=== PATIENT | female | born 1960 | race Hispanic/Latino ===

== ENCOUNTER 2018-03-25 19:54 | Emergency (ER) | payer MEDICARE, OTHER ==
[~2018-03-25] VITALS: Ht 157.5 cm; Wt 68.0 kg
[~2018-03-25 19:54] MED LIST: ATENOLOL50 MG PO; FUROSEMIDE40 MG PO; PRILOSEC OTC20 MG PO; XANAX0.5 MG PO
--- OUTSIDE RECORDS SUMMARY | 2018-03-25 19:56 | XMS REPORT ---
Author Author [facility] Address Unknown Phone Unavailable Care Team Providers Care Online Services Manager Name Role Phone SILVANA HUDSON Unavailable Unavailable ROHAN GONZALEZ Unavailable Unavailable Problems This patient has no known problems. Allergies, Adverse Reactions, Alerts This patient has no known allergies or adverse reactions. Medications This patient has no known medications. Results Test Description Test Time Test Comments Text Results Atomic Results Result Comments CT ABDOMEN/PELVIS WO [place] [address] Patient Name: FEDE NEVES MR #: [id number] : 1960 Age/Sex: 56/F Req #: [id number] Adm Physician: Ordered by: SILVANA HUDSON MD Report #: [id number] Location: ER Room/Bed: Procedure: [id number] CT/CT ABDOMEN/PELVIS WO Exam Date: 09/24/17 Exam Time: 5 REPORT STATUS: Signed EXAM: CT ABDOMEN AND PELVIS without IV CONTRAST DATE: 09/24/2017 11:07 PM Time stamp on Exam: 2328 hours INDICATION: Left flank pain COMPARISON: CT of the abdomen and pelvis with IV contrast May 30, 2014 TECHNIQUE: The abdomen and pelvis were scanned using a multidetector helical scanner. Coronal and sagittal reformations were obtained. Renal stone protocol performed. IV Contrast: None Oral Contrast: None CTDIvol has been reviewed. It is below the limits set by the Radiation Protocol Committee (RPC). FINDINGS: LOWER THORAX: No consolidations LIVER: Hepatomegaly and cirrhotic liver morphology. BILIARY: Calcified gallstone in a nondistended gallbladder. No ductal dilation. SPLEEN: Marked splenomegaly with the spleen measuring 18 cm in AP diameter. PANCREAS: No masses ADRENALS: No nodules RIGHT KIDNEY: No nephroureterolithiasis or hydronephrosis. LEFT KIDNEY: No nephroureterolithiasis or hydronephrosis. GI TRACT: No distention, wall thickening or evidence of obstruction. Small sliding-type hiatal hernia. Normal appendix. VESSELS: Mild atherosclerotic changes. PERITONEUM/ RETROPERITONEUM: No free air or fluid LYMPH NODES: No lymphadenopathy REPRODUCTIVE ORGANS: Unremarkable BLADDER: Unremarkable SOFT TISSUES: Small fat-containing left inguinal hernia. BONES: No suspicious bone lesions. IMPRESSION: No nephroureterolithiasis or hydronephrosis. Cirrhosis with splenomegaly. Cholelithiasis without evidence of cholecystitis. Signed by: Dr. Le Childress M.D. on 09/25/2017 12:01 AM Dictated By : LE CHILDRESS MD 17 Transcribed By: LUISA on 09/25/172017 COPY TO: SILVANA HUDSON MD GALLBLADDER [place] [address] Patient Name: FEDE NEVES MR #: [id number] : 1960 Age/Sex: 56/F Req #: [id number] Adm Physician: Ordered by: ROHAN GONZALEZ MD Report #: [id number] Location: US Room/Bed: Procedure: [id number] US/US GALLBLADDER Exam Date: Exam Time: REPORT STATUS: Signed PROCEDURE: US GALLBLADDER COMPARISON: Gallbladder ultrasound 05/30/2014. INDICATIONS: Dyspepsia TECHNIQUE: Chase- scale and color doppler transverse and longitudinal images of the right upper quadrant of the abdomen were obtained. FINDINGS: Liver: 18.4 cm in right mid-clavicular line. Coarsened parenchymal echogenicity with nodular external contour. No masses. Main portal vein: 1.6 cm in caliber. Hepatopedal flow. Gallbladder: Echogenic foci protruding from the gallbladder wall into the lumen measuring up to 0.7 cm in caliber, without shadowing. No calculus, sludge, wall thickening, or pericholecystic fluid. Common Bile Duct: 0.5 cm Sonographic Spencer's sign: Reported as negative. Right kidney: 10 cm. Normal renal cortical echogenicity. No solid masses or hydronephrosis. Pancreas: The visualized portions are unremarkable. Inferior vena cava: Patent Aorta: Non-aneurysmal Ascites : None in the right upper quadrant of the abdomen. CONCLUSION: Cirrhosis with enlargement of the main portal vein suggestive of portal hypertension. No focal hepatic mass. Gallbladder polyps measuring up to 0.7 cm. Followup right upper quadrant ultrasound in 6-12 months is suggested to document stability. Dictated by: Tiffany Guevara M.D. on 09/09/2017 at 9: 25 Electronically approved by: Tiffany Guevara M.D. on 09/09/2017 at 9:25 Dictated By: TIFFANY GUEVARA MD 4 Transcribed By: CANDY on 09/09/17924 COPY TO : ROHAN GONZALEZ MD
[2018-03-25] MEDS ORDERED: KETOROLAC TROMETHAMINE 30 MG/ML VIAL IV STA (20:41)
[2018-03-25] MEDS ORDERED: POTASSIUM CHLORIDE 20 MEQ TAB CR PO STA (21:36)
[2018-03-25] MEDS ORDERED: IOPAMIDOL 300MG/ML 100 ML INFUS..BTL IV ONE (22:15)
[2018-03-25 23:16] VITALS: BP 132/84
== END 2018-03-25 23:45 | disposition home or self-care (01) ==
LOC: FSED 19:54
DX: S33.5XXA Sprain of ligaments of lumbar spine, initial encounter (principal); X58.XXXA Exposure to other specified factors, initial encounter; M47.26 Other spondylosis with radiculopathy, lumbar region
CPT/HCPCS: 99284; J1885; Q9967

== ENCOUNTER 2018-06-04 20:15 | Emergency (ER) | payer MEDICARE, OTHER ==
[~2018-06-04] VITALS: Ht 157.5 cm; Wt 66.7 kg
[2018-06-04] MEDS ORDERED: METHYLPREDNISOLONE SOD SUCC 125 MG/2ML VIAL IM ONE (20:45)
[2018-06-04] MEDS ORDERED: KETOROLAC TROMETHAMINE 60 MG/2 ML VIAL IM ONE (20:45)
[2018-06-04] MEDS ORDERED: CLINDAMYCIN HCL 150 MG CAP PO ONE (20:45)
[2018-06-04] MEDS ORDERED: TRIMETHOPRIM/SULFAMETHOXAZOLE 160-800 MG TAB PO ONE (21:00)
[2018-06-04 21:23] VITALS: BP 138/76
[2018-06-04] MEDS ORDERED: MEDROL4 MG PO (21:27)
[2018-06-04] MEDS ORDERED: CLINDAMYCIN HC150 MG PO (21:27)
[2018-06-04] MEDS ORDERED: TYLENOL WITH C1 EACH PO (21:27)
[2018-06-04] MEDS ORDERED: IBUPROFEN400 MG PO (21:29)
== END 2018-06-04 21:31 | disposition home or self-care (01) ==
LOC: FSED 20:15
DX: M25.512 Pain in left shoulder (principal); L03.114 Cellulitis of left upper limb
CPT/HCPCS: 99282; J1885; J2930

== ENCOUNTER 2019-01-21 19:17 | Emergency (ER) | payer MEDICARE, OTHER ==
[~2019-01-21] VITALS: Ht 157.5 cm; Wt 72.8 kg
[~2019-01-21 19:17] MED LIST changes: +CLINDAMYCIN HC150 MG PO; +IBUPROFEN400 MG PO; +MEDROL4 MG PO; +TYLENOL WITH C1 EACH PO
[2019-01-21] MEDS ORDERED: SODIUM CHLORIDE 0.9% 1000ML 1,000 ML IV SCH (20:00)
[2019-01-21] MEDS ORDERED: ACETAMINOPHEN 325 MG TAB PO ONE (20:00)
[2019-01-21] MEDS ORDERED: POTASSIUM CHLORIDE 20 MEQ TAB CR PO STA (21:20)
[2019-01-21 23:12] VITALS: BP 121/80
== END 2019-01-21 21:47 | disposition home or self-care (01) ==
LOC: FSED 19:17
DX: G44.89 Other headache syndrome (principal); E87.6 Hypokalemia; K52.9 Noninfective gastroenteritis and colitis, unspecified; I10 Essential (primary) hypertension; K74.60 Unspecified cirrhosis of liver; F32.9 Major depressive disorder, single episode, unspecified
CPT/HCPCS: 80053; 81003; 85025; 99283; J7030

== ENCOUNTER 2019-01-31 20:02 | Emergency (ER) | payer MEDICARE, OTHER ==
[~2019-01-31] VITALS: Ht 157.5 cm; Wt 71.4 kg
--- OUTSIDE RECORDS SUMMARY | 2019-01-31 20:04 | XMS REPORT ---
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 V72.31 Active Jayda Burgos MD Routine gynecological examination Std screening V74.5 Active Jayda Burgos MD Screening examination for venereal disease Medication List Medication Instructions Start Date Stop Date Generic Name NDC Status Provider Patient Instruction No Drug Therapy Prescribed - none known did ask Jayda Burgos MD Vital Signs Date Name Value Unit Range Description blood pressure, diastolic 88 mm[Hg] BP narvaez blood pressure, systolic 153 mm[Hg] BP sys height E&M 62 [in_us] Bdy height pulse rate E&M 59 /min Heart rate respiratory rate E&M 16 /min Resp rate temperature E&M 97.8 [degF] Body temperature weight E&M 149.13 [lb_av] Weight Measured blood pressure, diastolic 83 mm[Hg] BP narvaez blood pressure, systolic 128 mm[Hg] BP sys height E&M 62 [in_us] Bdy height pulse rate E&M 63 /min Heart rate respiratory rate E&M 17 /min Resp rate temperature E&M 98.0 [degF] Body temperature weight E&M 146.25 [lb_av] Weight Measured Diagnostic Results Date Name Value Unit Range Description Lab Report: Ct, Ng, Trich vag by KEIRA - Lab chlamydia DNA probe Negative Negative Lab Report: Ct, Ng, Trich vag by KEIRA - Microbiology Neisseria gonorrhoeae DNA probe Negative Negative Encounters Date Encounter Provider Code Facility 15:22:19 CDT Est Patient Problem Focus - 00391 Jayda Burgos MD CPT-70589 [facility] OB Procedures Code Procedure Name Date Entry Date Standard Description CPT-15656 Urinalysis - Dip only - In House 11:59:58 CDT CPT-83110 New Patient Well Exam (40 - 64 Yrs) - [address] 11:59:58 CDT
[2019-01-31] MEDS ORDERED: ALPRAZOLAM 1 MG TAB PO ONE (20:45)
[2019-01-31] MEDS ORDERED: METOPROLOL TARTRATE 25 MG TAB PO ONE (20:45)
[2019-02-01 03:36] VITALS: BP 144/85
== END 2019-01-31 22:40 | disposition home or self-care (01) ==
LOC: FSED 20:02
DX: I10 Essential (primary) hypertension (principal); F41.1 Generalized anxiety disorder

== ENCOUNTER 2019-02-16 17:44 | Emergency (ER) | payer MEDICARE, OTHER ==
[~2019-02-16] VITALS: Ht 157.5 cm; Wt 71.2 kg
--- OUTSIDE RECORDS SUMMARY | 2019-02-16 17:48 | XMS REPORT | Summary of Care ---
Author Author [facility] Organization [facility] Address Unknown Phone Unavailable Encounter HQ Adam(STEFANI) [id number] Date(s): 02/27/18 - 02/28/18 [facility] [address] [place] [address]- Encounter Diagnosis Chest pain (Discharge Diagnosis) - 02/28/18 Other chest pain (Final) - 03/06/18 Essential (primary) hypertension (Final) - Major depressive disorder, single episode, unspecified (Final) - Discharge Disposition: Home or Self Care Attending Physician: Magdalene Ragland DO Vital Signs 1 2 3 Most recent to oldest [Reference Range]: 170.18 cm (02/27/18 6:21 PM) Height 98.2 DegF (02/28/18 1:08 AM) 98 DegF (02/27/18 6:21 PM) Temperature Oral [96.4-99.1 DegF] 107/71 mmHg (02/28/18 1:08 AM) 103/62 mmHg (02/28/18 12:33 AM) 112/74 mmHg (02/27/18 10:49 PM) Blood Pressure [90-140/60-90 mmHg] 15 BRMIN (02/28/18 1:08 AM) 16 BRMIN (02/28/18 12:33 AM) 15 BRMIN (02/27/18 10:49 PM) Respiratory Rate [14-20 BRMIN] 94 bpm (02/27/18 6:21 PM) Peripheral Pulse Rate [60-100 bpm] 63.636 kg (02/27/18 6:21 PM) Weight 21.97 m2 (02/27/18 6:21 PM) Body Mass Index Problem List Condition Effective Dates Status Health Status Informant Abdominal pain, Active acute(Confirmed) Alcoholic cirrhosis Active of liver(Confirmed) Ankle 10/02/10 Resolved fracture(Confirmed)1 Ascites(Confirmed) Active Overweight (BMI Active 25.0-29.9)(Confirmed ) Depression(Confirmed Active ) Escherichia 09/26/17 Active coli(Confirmed)2, 3 Esophageal varices Active without bleeding(Confirmed) Gastritis(Confirmed) Active High blood Active pressure(Confirmed) Breast lump in Active female(Confirmed) 1Approximate date 2Urine (ESBL), 2017 3Problem added by Discern Expert. Allergies, Adverse Reactions, Alerts Substance Reaction Severity Status morphine Active NKDA Active Medications Saline Flush 0.9% 10 mL, Route: IVP, Drug Form: INJ, Dosing Weight 63.636, kg, PRN, PRN Line Flush , Start date: 02/27/18 18:36:00 CDT, Duration: 30 day, Stop date: 03/29/18 18:35 :00 CDT Notes: (Same as: BD Posiflush) Start Date: 02/27/18 Stop Date: 02/28/18 Status: Discontinued Results ELECTROLYTES Most recent to 1 2 oldest [Reference Range]: Sodium Lvl [135-145 135 mEq/L mEq/L] (02/27/18 7:02 PM) Potassium Lvl 3.3 mEq/L [3.5-5.1 mEq/L] *LOW* (02/27/18 7:02 PM) Chloride Lvl [95-109 102 mEq/L mEq/L] (02/27/18 7:02 PM) CO2 [24-32 mEq/L] 26 mEq/L (02/27/18 7:02 PM) AGAP [10.0-20.0 10.3 mEq/L mEq/L] (02/27/18 7:02 PM) CHEM PANEL Most recent to 1 2 oldest [Reference Range]: Creatinine Lvl 0.64 mg/dL [0.50-1.40 mg/dL] (02/27/18 7:02 PM) eGFR 101 mL/min/1.73m2 1 *NA* (02/27/18 7:02 PM) BUN [7-22 mg/dL] 17 mg/dL (02/27/18 7:02 PM) B/C Ratio [6-25] 27 *HI* (02/27/18 7:02 PM) Glucose Lvl [70-99 92 mg/dL mg/dL] (02/27/18 7:02 PM) Total Protein 8.6 g/dL [6.4-8.4 g/dL] *HI* (02/27/18 7:02 PM) Albumin Lvl [3.5-5.0 3.7 g/dL g/dL] (02/27/18 7:02 PM) Globulin [2.7-4.2 4.9 g/dL g/dL] *HI* (02/27/18 7:02 PM) A/G Ratio [0.7-1.6] 0.8 (02/27/18 7:02 PM) Calcium Lvl 8.9 mg/dL [8.5-10.5 mg/dL] (02/27/18 7:02 PM) ALT [0-65 unit/L] 47 unit/L (02/27/18 7:02 PM) AST [0-37 unit/L] 44 unit/L *HI* (02/27/18 7:02 PM) Alk Phos [39-136 291 unit/L unit/L] *HI* (02/27/18 7:02 PM) Bili Total [0.2-1.3 0.8 mg/dL mg/dL] (02/27/18 7:02 PM) 1Result Comment: The eGFR is calculated using the CKD-EPI formula. In most young, healthy individuals the eGFR will be >90 mL/min/1.73m2. The eGFR declines with age. An eGFR of 60-89 may be normal in some populations, particularly the elderly, for whom the CKD-EPI formula has not been extensively validated. Use of the eGFR is not recommended in the following populations: Individuals with unstable creatinine concentrations, including patients and those with serious co-morbid conditions. Patients with extremes in muscle mass or diet. The data above are obtained from the National Kidney Disease Education Program ( NKDEP) which additionally recommends that when the eGFR is used in patients with extremes of body mass index for purposes of drug dosing, the eGFR should be mul tiplied by the estimated BMI. CARDIAC ENZYMES Most recent to 1 2 oldest [Reference Range]: Total CK [12-191 98 unit/L unit/L] (02/27/18 7:02 PM) CK MB [0.5-3.6 1.0 ng/mL ng/mL] (02/27/18 7:02 PM) CK MB Index 1.0 [0.0-2.5] (02/27/18 7: PM) Troponin-I <0.02 ng/mL <0.02 ng/mL [0.00-0.40 ng/mL] (02/27/18 11:32 PM) (02/27/18 7:02 PM) HEMATOLOGY Most recent to 1 2 oldest [Reference Range]: WBC [3.7-10.4 K/CMM] 3.6 K/CMM *LOW* (02/27/18 7: PM) RBC [4.20-5.40 4.85 M/CMM M/CMM] (02/27/18 7: PM) Hgb [12.0-16.0 g/dL] 13.3 g/dL (02/27/18 7: PM) Hct [36.0-48.0 %] 39.7 % (02/27/18 7: PM) MCV [80.0-98.0 fL] 81.8 fL (02/27/18 7:02 PM) MCH [27.0-31.0 pg] 27.5 pg (02/27/18 7: PM) MCHC [32.0-36.0 33.6 g/dL g/dL] (02/27/18 7:02 PM) RDW [11.5-14.5 %] 15.2 % *HI* (02/27/18 7: PM) MPV [7.4-10.4 fL] 8.1 fL (02/27/18 7:02 PM) Platelet [133-450 88 K/CMM K/CMM] *LOW* (02/27/18 7: PM) Segs [45.0-75.0 %] 68.2 % (02/27/18 7:02 PM) Lymphocytes 22.3 % [20.0-40.0 %] (02/27/18 7:02 PM) Monocytes [2.0-12.0 7.9 % %] (02/27/18 7: PM) Eosinophils [0.0-4.0 1.1 % %] (02/27/18 7:02 PM) Basophils [0.0-1.0 0.5 % %] (02/27/18 7:02 PM) Segs-Bands # 2.4 K/CMM [1.5-8.1 K/CMM] (02/27/18 7:02 PM) Lymphocytes # 0.8 K/CMM [1.0-5.5 K/CMM] *LOW* (02/27/18 7:02 PM) Monocytes # [0.0-0.8 0.3 K/CMM K/CMM] (02/27/18 7:02 PM) Immunizations Given and Recorded Vaccine Date Status Refusal Reason hepatitis B adult vaccine1 01/30/16 Recorded hepatitis B adult vaccine 09/27/15 Given hepatitis B pediatric vaccine 06/21/15 Given 1Location History: Alison Allen RN Procedures Procedure Date Related Diagnosis Body Site Status Esophagogastroduodenoscopy 02/22/16 Completed Colonoscopy 06/30/15 Completed Social History Social History Type Response Alcohol Current, Type Beer. Frequency: Several times per day. Last use: This past holiday season, around Jimmy.. Previous treatment: None. Alcohol use interferes with work or home: Yes. Drinks more than intended: Yes. Others hurt by drinking: No. Ready to change: Yes. Household alcohol concerns: No. Smoking Status Never smoker; Concerns about tobacco use in household: No; Exposure to Tobacco Smoke Friends occasionally smoke.; Cigarette Smoking Last 365 Days No; Reg Smoking Cessation Counseling No1 entered on: 05/20/18 1Cessation N/A Assessment and Plan No data available for this section
--- OUTSIDE RECORDS SUMMARY | 2019-02-16 17:48 | XMS REPORT | Continuity of Care Document ---
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 hepatofugal multiphasic flow. Splenic artery: Patent with antegrade pulsatile flow. Splenic vein: Patent with normal flow. Bile ducts: Common bile duct diameter: 0.2 cm. Intrahepatic ducts: Normal. Gallbladder: Well distended. Gallstones: None. Stable small 4 mm gallbladder polyp. Gallbladder sludge: None. Gallbladder wall: 0.2 cm. Pericholecystic fluid: None. Sonographic Spencer sign: Absent. Pancreas: Head and uncinate process: Normal. Body and tail: Not seen. Spleen: Craniocaudal length: 11.8 cm. Mass or focal lesion (size and location): None. Mass/Stone/Cyst (size and location): None. Abdominal aorta and IVC: Visible portions are normal. Ascites: None. Other: None. IMPRESSION: 1. Cirrhotic liver without focal mass. Liver stiffness index correlates with severe fibrosis (Metavir score F4). 2. Dilated main portal vein in keeping with portal hypertension. Otherwise, no Doppler/flow abnormalities. 3. Splenomegaly. 05/05/2018 - - Read by: Gustavo Cummings MD Dictated Date/time: 05/05/18 14:20 Electronically Signed by: Gustavo Cummings MD 05/05/18 14:25 FINAL REPORT [facility] Liver w Liver vessels Doppler US Liver w Liver vessels Doppler US EXAM: US ABDOMEN COMPLETE WITH DOPPLER EXAM: US ELASTOGRAPHY DATE: 05/05/2018 1:00 PM CDT INDICATION: - with elastography ADDITIONAL INFORMATION: None. COMPARISON: Ultrasound 11/14/2017 TECHNIQUE: Multiplanar grayscale, color Doppler and spectral Doppler ultrasound of the abdomen. Elastography: Ten samples from the liver were obtained. FINDINGS: Liver: Craniocaudal length: 17.4 cm. Echogenicity: Coarsened Surface: Nodular Mass (size and location): None. Elastography: The average liver stiffness is 23.76 kPa with a standard deviation of 3.57 kPa. Five samples from the spleen were obtained. Hepatic and portal vasculature: Hepatic artery: Patent with antegrade pulsatile flow. Resistive index: 0.67 Portal veins: Patent with normal hepatopetal monophasic flow. Caliber: 1.5 cm Hepatic veins: Patent with normal hepatofugal multiphasic flow. Splenic artery: Patent with antegrade pulsatile flow. Splenic vein: Patent with normal flow. Bile ducts: Common bile duct diameter: 0.2 cm. Intrahepatic ducts: Normal. Gallbladder: Well distended. Gallstones: None. Stable small 4 mm gallbladder polyp. Gallbladder sludge: None. Gallbladder wall: 0.2 cm. Pericholecystic fluid: None. Sonographic Spencer sign: Absent. Pancreas: Head and uncinate process: Normal. Body and tail: Not seen. Spleen: Craniocaudal length: 11.8 cm. Mass or focal lesion (size and location): None. Mass/Stone/Cyst (size and location): None. Abdominal aorta and IVC: Visible portions are normal. Ascites: None. Other: None. IMPRESSION: 1. Cirrhotic liver without focal mass. Liver stiffness index correlates with severe fibrosis (Metavir score F4). 2. Dilated main portal vein in keeping with portal hypertension. Otherwise, no Doppler/flow abnormalities. 3. Splenomegaly. 05/05/2018 - - Read by: Gustavo Cummings MD Dictated Date/time: 05/05/18 14:20 Electronically Signed by: Gustavo Cummings MD 05/05/18 14:25 FINAL REPORT [facility] CARDIAC ENZYMES Troponin-I null 0.00 - 0.40 02/28/2018 [facility] CARDIAC ENZYMES Total CK 98 unit/L 12 - 191 02/28/2018 [facility] CARDIAC ENZYMES CK MB 1.0 ng/mL 0.5 - 3.6 02/28/2018 [facility] CARDIAC ENZYMES Troponin-I null 0.00 - 0.40 02/28/2018 [facility] CARDIAC ENZYMES CK MB Index 1.0 0.0 - 2.5 02/28/2018 [facility] CHEM PANEL eGFR 101 mL/min/1.73m2 02/28/2018 Result Comment: The eGFR is calculated using the [...] from the National Kidney Disease Education Program (NKDEP) which additionally recommends that when the eGFR is used in patients with extremes of body mass index for purposes of drug dosing, the eGFR should be multiplied by the estimated BMI. [facility] CHEM PANEL A/G Ratio 0.8 0.7 - 1.6 02/28/2018 [facility] CHEM PANEL Globulin 4.9 g/dL 2.7 - 4.2 02/28/2018 [facility] CHEM PANEL Calcium Lvl 8.9 mg/dL 8.5 - 10.5 02/28/2018 [facility] CHEM PANEL CO2 26 meq/L 24 - 32 02/28/2018 [facility] CHEM PANEL Chloride Lvl 102 meq/L 95 - 109 02/28/2018 [facility] CHEM PANEL Albumin Lvl 3.7 g/dL 3.5 - 5.0 02/28/2018 [facility] CHEM PANEL Total Protein 8.6 g/dL 6.4 - 8.4 02/28/2018 [facility] CHEM PANEL AST 44 unit/L 0 - 37 02/28/2018 [facility] CHEM PANEL ALT 47 unit/L 0 - 65 02/28/2018 [facility] CHEM PANEL Alk Phos 291 unit/L 39 - 136 02/28/2018 [facility] CHEM PANEL B/C Ratio 27 6 - 25 02/28/2018 [facility] CHEM PANEL AGAP 10.3 meq/L 10.0 - 20.0 02/28/2018 [facility] CHEM PANEL Bili Total 0.8 mg/dL 0.2 - 1.3 02/28/2018 [facility] CHEM PANEL Sodium Lvl 135 meq/L 135 - 145 02/28/2018 [facility] CHEM PANEL Creatinine Lvl 0.64 mg/dL 0.50 - 1.40 02/28/2018 [facility] CHEM PANEL BUN 17 mg/dL 7 - 22 02/28/2018 [facility] CHEM PANEL Potassium Lvl 3.3 meq/L 3.5 - 5.1 02/28/2018 [facility] CHEM PANEL Glucose Lvl 92 mg/dL 70 - 99 02/28/2018 [facility] HEMATOLOGY RDW 15.2 % 11.5 - 14.5 02/28/2018 [facility] HEMATOLOGY Hct 39.7 % 36.0 - 48.0 02/28/2018 [facility] MCV 81.8 fL 80.0 - 98.0 02/28/2018 [facility] MCH 27.5 pg 27.0 - 31.0 02/28/2018 [facility] MCHC 33.6 g/dL 32.0 - 36.0 02/28/2018 [facility] MPV 8.1 fL 7.4 - 10.4 02/28/2018 [facility] Platelet 88 K/CMM 133 - 450 02/28/2018 [facility] Hgb 13.3 g/dL 12.0 - 16.0 02/28/2018 [facility] WBC 3.6 K/CMM 3.7 - 10.4 02/28/2018 [facility] RBC 4.85 M/CMM 4.20 - 5.40 02/28/2018 [facility] Monocytes # 0.3 K/CMM 0.0 - 0.8 02/28/2018 [facility] HEMATOLOGY Segs-Bands # 2.4 K/CMM 1.5 - 8.1 02/28/2018 [facility] Lymphocytes # 0.8 K/CMM 1.0 - 5.5 02/28/2018 [facility] Eosinophils 1.1 % 0.0 - 4.0 02/28/2018 [facility] Monocytes 7.9 % 2.0 - 12.0 02/28/2018 [facility] HEMATOLOGY Basophils 0.5 % 0.0 - 1.0 02/28/2018 [facility] HEMATOLOGY Segs 68.2 % 45.0 - 75.0 02/28/2018 [facility] HEMATOLOGY Lymphocytes 22.3 % 20.0 - 40.0 02/28/2018 [facility] Chest 1view DX Chest 1view DX Clinical Indication: - CP; chest pain Comparison: 12/06/2014 FINDINGS: The portable AP single view radiograph provided for review. The exam demonstrates limited decreased lung volumes without interstitial or airspace opacities, pleural effusions or pneumothorax. The heart size and pulmonary vasculature are normal. The trachea is midline. There are no clinically significant osseous abnormalities noted. IMPRESSION: No chest radiographic evidence of acute cardiopulmonary disease. 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 COMPARISON: Liver ultrasound with Doppler and elastography, 09/10/2017. MRI abdomen, 2017. TECHNIQUE: Multiplanar grayscale and color Doppler ultrasound of the right upper quadrant. FINDINGS: Liver: Mildly enlarged (19.3 cm in length) liver with heterogeneous echotexture and nodular contour characteristic of cirrhosis. No focal hepatic mass identified. Hepatic and portal vasculature: Hepatic artery: Patent with antegrade pulsatile flow. Resistive index: . Portal veins: Patent with normal hepatopetal monophasic flow. MPV caliber: Dilated at 1.5 cm. Hepatic veins: Patent with normal hepatofugal multiphasic flow. Splenic artery: Patent with antegrade pulsatile flow. Splenic vein: Patent with normal flow. Collateral: None. Inferior vena cava: Visible portions are normal. Main portal vein: Dilated main portal vein (1.5 cm) with hepatopetal flow. Bile ducts: Common bile duct diameter: 4 mm. Intrahepatic ducts: Normal. Gallbladder: Small fixed shadowing gallstone along the gallbladder wall, gallbladder sludge and 4 mm polyp. No wall thickening and negative Spencer's. No follow-up indicated for follow-up of this size. Pancreas: Pancreatic body is unremarkable. Remainder of pancreas obscured by bowel gas. Spleen: Persistent splenomegaly (12.5 cm in length). Other: None. IMPRESSION: 1. Cirrhosis. No focal hepatic mass. 2. Normal Doppler examination of the liver. 3. Findings of portal hypertension including dilated main portal vein and splenomegaly. 4. Small adherent gallstone present along gallbladder wall. 5. Small gallbladder polyp, 4 mm. No follow up indicated for this finding given small size. 11/14/2017 - - Read by: Randi Barriga MD Dictated Date/time: 11/14/17 12:25 Electronically Signed by: Randi Barriga MD 11/14/17 12:43 FINAL REPORT [facility] IMMUNOLOGY [facility] HIV 4th GEN Negative *NA* (09/26/17 1:30 PM) Negative 2017 [facility] ELECTROLYTES AGAP 11.8 meq/L 10.0 - 20.0 2017 [facility] ELECTROLYTES eGFR 86 mL/min/1.73m2 2017 Result Comment: The eGFR is calculated using the [...] from the National Kidney Disease Education Program (NKDEP) which additionally recommends that when the eGFR is used in patients with extremes of body mass index for purposes of drug dosing, the eGFR should be multiplied by the estimated BMI. [facility] ELECTROLYTES BUN 12 mg/dL 7 - 22 2017 [facility] ELECTROLYTES Glucose Lvl 91 mg/dL 70 - 99 2017 [facility] ELECTROLYTES Chloride Lvl 102 meq/L 95 - 109 2017 [facility] ELECTROLYTES Potassium Lvl 3.8 meq/L 3.5 - 5.1 2017 [facility] ELECTROLYTES Sodium Lvl 140 meq/L 135 - 145 2017 [facility] ELECTROLYTES Creatinine Lvl 0.78 mg/dL 0.50 - 1.40 2017 [facility] ELECTROLYTES Calcium Lvl 9.0 mg/dL 8.5 - 10.5 2017 [facility] ELECTROLYTES CO2 30 meq/L 24 - 32 2017 [facility] HEMATOLOGY Platelet 90 K/CMM 133 - 450 2017 [facility] HEMATOLOGY RDW 15.0 % 11.5 - 14.5 2017 [facility] HEMATOLOGY MCHC 33.4 g/dL 32.0 - 36.0 2017 [facility] HEMATOLOGY MPV 8.1 fL 7.4 - 10.4 2017 [facility] HEMATOLOGY Hgb 13.7 g/dL 12.0 - 16.0 2017 [facility] HEMATOLOGY Hct 41.0 % 36.0 - 48.0 2017 [facility] HEMATOLOGY MCV 80.5 fL 80.0 - 98.0 2017 [facility] HEMATOLOGY MCH 26.8 pg 27.0 - 31.0 2017 [facility] HEMATOLOGY WBC 4.2 K/CMM 3.7 - 10.4 2017 [facility] HEMATOLOGY RBC 5.09 M/CMM 4.20 - 5.40 2017 [facility] HEMATOLOGY Monocytes # 0.3 K/CMM 0.0 - 0.8 2017 [facility] HEMATOLOGY Segs-Bands # 3.1 K/CMM 1.5 - 8.1 2017 [facility] HEMATOLOGY Lymphocytes # 0.7 K/CMM 1.0 - 5.5 2017 [facility] HEMATOLOGY Eosinophils 0.9 % 0.0 - 4.0 2017 [facility] HEMATOLOGY Lymphocytes 17.1 % 20.0 - 40.0 2017 [facility] HEMATOLOGY Monocytes 7.1 % 2.0 - 12.0 2017 [facility] HEMATOLOGY Basophils 0.4 % 0.0 - 1.0 2017 [facility] HEMATOLOGY Segs 74.5 % 45.0 - 75.0 2017 [facility] URINE AND STOOL UA Blood Trace *ABN* (09/26/17 12:45 PM) Negative 2017 [facility] URINE AND STOOL UA Urobilinogen 0.2 EU/dL 0.1 - 1.0 2017 [facility] URINE AND STOOL UA Leuk Est Small *ABN* (09/26/17 12:45 PM) Negative 2017 [facility] URINE AND STOOL UA Nitrite Negative (09/26/17 12:45 PM) Negative 2017 [facility] URINE AND STOOL UA Ketones Negative *NA* (09/26/17 12:45 PM) Negative 2017 [facility] URINE AND STOOL UA Bili Negative *NA* (09/26/17 12:45 PM) Negative 2017 [facility] URINE AND STOOL UA Spec Grav 1.007 <=1.030 2017 [facility] URINE AND STOOL UA Glucose Negative (09/26/17 12:45 PM) Negative 2017 [facility] URINE AND STOOL UA Protein Negative (09/26/17 12:45 PM) Negative 2017 [facility] URINE AND STOOL UA pH 6.5 5.0 - 8.0 2017 [facility] URINE AND STOOL UA Color Yellow *NA* (09/26/17 12:45 PM) Yellow 2017 [facility] URINE AND STOOL UA Turbidity Slight Cloudy (09/26/17 12:45 PM) Clear 2017 [facility] URINE AND STOOL UA Bacteria Few /HPF None Seen /HPF 2017 [facility] URINE AND STOOL UA Gloster Yeast Few /HPF None Seen /HPF 2017 [facility] URINE AND STOOL UA Sq Epi Moderate /LPF Few /LPF 2017 [facility] URINE AND STOOL UA WBC 0-2 /HPF None Seen /HPF 2017 [facility] URINE AND STOOL UA RBC 0-2 /HPF 0 - 2 2017 [facility] Renal Stone CT Renal Stone CT EXAM: CT ABDOMEN AND PELVIS WITHOUT CONTRAST DATE: 2017 12:33 PM CDT INDICATION: - flank pain, hematuria COMPARISON: CT February 01, 2017 and MRI abdomen of the same day TECHNIQUE: Volumetric CT acquisition of the abdomen and pelvis without intravenous contrast. Axial, coronal and sagittal reconstructions. IV contrast: None. Enteric contrast: None. DLP: 456 mGy-cm. UT SECTION: ER FINDINGS: Lines, tubes and hardware: None. Lower thorax: Clear. Coronary and aortic sclerosis. Liver: The liver is enlarged measuring 21 cm and demonstrates a nodular contour consistent with cirrhosis. No focal hepatic lesion. Biliary tree: No intra- or extrahepatic biliary ductal dilation. Gallbladder: Tiny gallstones without evidence of cholecystitis. Pancreas: Normal. Spleen: The spleen is enlarged measuring 18.7 cm AP. Adrenals: Normal. Kidneys and ureters: Right kidney and ureter: The right kidney is mildly atrophic. No stones or hydronephrosis. Left kidney and ureter: Normal. No stones or hydronephrosis. Bladder: Normal. Reproductive organs: Normal Gastrointestinal tract: Stomach is decompressed. Normal caliber small and large bowel loops. The appendix is normal. Diverticulosis without diverticulitis. There is fluid within and question of wall thickening about the rectum with adjacent fat stranding. Mild additional fat stranding is noted around the ascending colon. Appendix: Normal. Peritoneum, mesentery and retroperitoneum: Trace abdominal ascites. Lymph nodes: Normal. Vasculature: Abdominal aortic atherosclerosis. Bones: No acute abnormality. Lower lumbar spondylosis. Soft tissues: Fat-containing left inguinal hernia. IMPRESSION: 1. No renal, ureteral or bladder calculi. 2. Fluid and wall thickening about the rectum with adjacent fat stranding may relate to proctitis or sequela of cirrhosis. 3. Hepatosplenomegaly with nodular contour of the liver consistent with cirrhosis. Please see the same day MRI report for further evaluation. UT SECTION: ER 2017 - - This report was dictated by a Brand Lead/Fellow. I have personally reviewed the images as well as the Resident's interpretation and agree with the findings. Read by: Jomar See DO Resident: Jomar See DO Dictated Date/time: 09/26/17 14:14 Electronically Signed by: David Donald MD 09/26/17 14:41 FINAL REPORT [facility] Abdomen w/wo contrast MRI Abdomen w/wo contrast MRI EXAM: MR ABDOMEN WITH AND WITHOUT CONTRAST EXAM: MRCP DATE: 2017 at 0754 hours INDICATION: severe abdominal pain for 4 days. Patient went to ER and was told she has gall stones shown in CT ADDITIONAL INFORMATION: None. COMPARISON: * US abdomen of 09/10/2017 at 0[address] hours. * CT abdomen of TECHNIQUE: Multiplanar, multisequence acquisition of the abdomen both prior to and following intravenous contrast, in precontrast, arterial, portal venous and delayed phases of enhancement, per the dynamic liver and MRCP protocol. IV contrast: 14 mL of MultiHance Enteric contrast: None. FINDINGS: Lines, tubes and hardware: None. Lower thorax: Clear. Liver: Craniocaudal length: 20.3 cm. Density: Heterogeneous. Surface: Nodular. Hepatic masses: None. Non-enhancing/cystic hepatic lesions: None. Hepatic vessels: Hepatic arterial anatomy: Conventional. Arterial stenoses: None. Portal vein: Patent. Caliber: 1.5. Portosystemic collaterals: None. Hepatic, splenic and superior mesenteric veins, and IVC: Patent. Regional lymph nodes: Normal. Biliary tree: Intrahepatic bile ducts: Normal. Extrahepatic bile duct: Normal. * Common bile duct is 0.6 cm. Pancreatic duct: Normal. Gallbladder and cystic duct: * Gallstones and subcentimeter polyps seen on prior exams are not evident by this study. * Gallbladder is otherwise normal. Pancreas: Normal. Spleen: Enlarged, measuring 18.1 x 11.9 x 5.4 cm. Adrenals: Normal. Kidneys and ureters: Normal. Gastrointestinal tract: Stomach: Normal. Small bowel: Normal. Colon: Normal. Peritoneum, mesentery and retroperitoneum: No free air, ascites or loculated fluid. Distant lymph nodes: Normal. Vasculature: Normal. Bones: Normal. Soft tissues: Normal. IMPRESSION: 1. Nodular hepatic contours in keeping with cirrhosis and stigmata of portal hypertension including splenomegaly and mildly dilated portal vein. 2. No focal hepatic lesions to suggest hepatocellular carcinoma. 3. Gallstone and subcentimeter polyps seen on prior exams are not readily evident on today's exam. 4. No biliary abnormality. RECOMMENDATIONS: Continued surveillance. 2017 - - Read by: Santo Ryder MD Dictated Date/time: 09/26/17 09:10 Electronically Signed by: Santo Ryder MD 09/26/17 09:39 FINAL REPORT [facility] Liver w Liver vessels Doppler US Liver w Liver vessels Doppler US EXAM: US ABDOMEN LIMITED LIVER WITH DOPPLER EXAM: US ELASTOGRAPHY DATE: 09/10/2017 8:42 AM CDT INDICATION: - with elastography ADDITIONAL INFORMATION: None. COMPARISON: None. TECHNIQUE: Multiplanar grayscale, color Doppler and spectral Doppler ultrasound of the liver and hepatic vasculature.Ten elastography samples were obtained from the liver FINDINGS: Liver: Craniocaudal length: 16.8 cm. Echogenicity: Normal. Surface: Mild nodularity Mass (size and location): None. Elastography: Average liver stiffness is 62.79 kPa Standard deviation is 7.3 kPa. Hepatic and portal vasculature: Common hepatic artery: Patent with antegrade pulsatile flow. Resistive index: 0.68 Portal veins: Patent with normal hepatopetal monophasic flow. Main portal vein caliber: 1.8 cm, dilated Hepatic veins: Patent with normal hepatofugal multiphasic flow. Splenic artery: Patent with antegrade pulsatile flow. Splenic vein: Patent with normal flow. Bile ducts: Common bile duct diameter: 0.8 cm. Intrahepatic ducts: Normal. Gallbladder: Well distended. Gallstones: No large stones are present. Gallbladder sludge: A 4 mm echogenic focus along the gallbladder wall may represent small adherent stone or sludge. Gallbladder wall: 0.2 cm. Pericholecystic fluid: None. Sonographic Spencer sign: Absent. Pancreas: Head and uncinate process: Normal. Body and tail: Not seen. Spleen: Craniocaudal length: 13.1 cm. Mass or focal lesion (size and location): None. Abdominal aorta and IVC: Visible portions are normal. Ascites: Trace IMPRESSION: 1. Cirrhotic liver without discrete lesion. 2. Liver stiffness index correlates with severe fibrosis. 3. Small gallbladder polyp. 4. Dilated portal vein and splenomegaly suggesting portal hypertension. 5. Trace ascites. 09/10/2017 - - Read by: Gustavo Cummings MD Dictated Date/time: 09/10/17 15:16 Electronically Signed by: Gustavo Cummings MD 09/10/17 15:22 FINAL REPORT [facility] Elastography US Elastography US EXAM: US ABDOMEN LIMITED LIVER WITH DOPPLER EXAM: US ELASTOGRAPHY DATE: 09/10/2017 8:42 AM CDT INDICATION: - with elastography ADDITIONAL INFORMATION: None. COMPARISON: None. TECHNIQUE: Multiplanar grayscale, color Doppler and spectral Doppler ultrasound of the liver and hepatic vasculature.Ten elastography samples were obtained from the liver FINDINGS: Liver: Craniocaudal length: 16.8 cm. Echogenicity: Normal. Surface: Mild nodularity Mass (size and location): None. Elastography: Average liver stiffness is 62.79 kPa Standard deviation is 7.3 kPa. Hepatic and portal vasculature: Common hepatic artery: Patent with antegrade pulsatile flow. Resistive index: 0.68 Portal veins: Patent with normal hepatopetal monophasic flow. Main portal vein caliber: 1.8 cm, dilated Hepatic veins: Patent with normal hepatofugal multiphasic flow. Splenic artery: Patent with antegrade pulsatile flow. Splenic vein: Patent with normal flow. Bile ducts: Common bile duct diameter: 0.8 cm. Intrahepatic ducts: Normal. Gallbladder: Well distended. Gallstones: No large stones are present. Gallbladder sludge: A 4 mm echogenic focus along the gallbladder wall may represent small adherent stone or sludge. Gallbladder wall: 0.2 cm. Pericholecystic fluid: None. Sonographic Spencer sign: Absent. Pancreas: Head and uncinate process: Normal. Body and tail: Not seen. Spleen: Craniocaudal length: 13.1 cm. Mass or focal lesion (size and location): None. Abdominal aorta and IVC: Visible portions are normal. Ascites: Trace IMPRESSION: 1. Cirrhotic liver without discrete lesion. 2. Liver stiffness index correlates with severe fibrosis. 3. Small gallbladder polyp. 4. Dilated portal vein and splenomegaly suggesting portal hypertension. 5. Trace ascites. 09/10/2017 - - Read by: Gustavo Cummings MD Dictated Date/time: 09/10/17 15:16 Electronically Signed by: Gustavo Cummings MD 09/10/17 15:22 FINAL REPORT [facility] Digital Mammo DX Fam MA Digital Mammo DX Fam MA - DIGITAL MAMMO DX FAM MA BILATERAL DIGITAL DIAGNOSTIC MAMMOGRAM WITH CAD: 04/10/2017 CLINICAL: R92.8 Other Abnormal And Inconclusive Findings On Diagnostic Imaging Of Breast. Current study was evaluated with a Computer Aided Detection (CAD) system. Comparison is made to exams dated: 09/05/2016 mammogram, 07/13/2016 mammogram and 07/12/2015 mammogram - [facility]. There are scattered fibroglandular densities in both breasts. There are benign vascular calcifications in both breasts. There also is a biopsy clip in the left breast. No significant masses, calcifications, or other findings are seen in either breast. There has been no significant interval change. IMPRESSION: BENIGN There is no mammographic evidence of malignancy. A 1 year screening mammogram is recommended. Professional services are provided by the [facility]. Ranjeet Cannon M.D. cm/penrad:04/10/2017 10:20:18 Dub Room Engineer: Heaven WHITFIELD(R)(Elena), [facility] Clemons This exam was dictated and interpreted by [id number] for MARIELENA Clemons. letter sent: Normal exam Mammogram BI-RADS: 2 Benign 04/10/2017 - - Read by: Parrish Moore MD Dictated Date/time: 04/10/17 10:20 Electronically Signed by: Parrish Moore MD 04/10/17 10:20 FINAL REPORT MARIELENA LEUNG Kaci Abd Liver Protocol w/wo IV contrast CT Abd Liver Protocol w/wo IV contrast CT EXAM: Abd Liver Protocol w/wo IV contrast CT HISTORY: Abdominal distension COMPARISON: 09/11/2016 CT imaging of the abdomen was obtained before and after 100 cc intravenous contrast with arterial and delayed imaging as well. Sagittal and coronal reformats were reviewed. DLP 1092 mGy cm. FINDINGS: The lung bases are clear. No abnormally enhancing hepatic masses are apparent on today's exam. Specifically, the 2 subcentimeter lesions described in the right hepatic lobe on the prior exam are not apparent today. The liver is significantly nodular and heterogeneously enhancing with an area of hypodensity again seen in the left hepatic lobe likely related to differential perfusion. The hepatic artery, hepatic vein and portosplenic venous system is patent. No large varices are identified. The splenic vein is prominent in size. The gallbladder is unremarkable. The spleen is enlarged. The pancreas and bilateral adrenal glands are unremarkable. Atrophy of the right kidney is again noted with cortical scarring. No stone, mass or hydronephrosis is evidence. The visualized bowel is nondilated without evidence of inflammation. There is no evidence of appendicitis. There is no free air or ascites. No significant abdominal lymphadenopathy is noted. The pelvis was not imaged. No concerning osseous lesion. IMPRESSION: Advanced nodularity of the liver in keeping with cirrhosis. No abnormally enhancing lesions are apparent on the current exam. Specifically, the 2 subcentimeter lesions which were seen on the prior study are not evident today. 02/01/2017 - - Read by: Konrad Ruiz MD Dictated Date/time: 02/04/17 07:11 Electronically Signed by: Konrad Ruiz MD 02/04/17 07:24 FINAL REPORT MARIELENA Clemons Stereo Breast BX Uni /Clip Primary SD MA Stereo Breast BX Uni /Clip Primary SD MA AMENDMENT: 10/15/2016 Lidia Tapia M.D. The patient had a very large bruise occupying the entire inferior portion of her breast. She returned to the breast center on 10/15/2016 for an ultrasound. There is a large eliptical shaped hematoma in the inferior breast that measures 9.4 x 3.1 x 1.6cm. She has been referred to a breast surgeon, Dr. Darcie Thakur and will see her at 11:00am for a consultation to see if this hematoma requires evacuation. I discussed the case with Dr. De Paz at 8:45am on 10/15/16. She will give me follow up on this patient after she sees her in clinic. If the patient requires serial ultrasound follow ups, she will return to this breast center free of charge. She is concerned about exercising. She was told that she can not box until this is resolved but could do non-impact cardiac work-outs and the surgeon could also give her more guidance on her exercise restrictions. She was told of the pathology results today as well. letter sent: Post Bx Results - STEREO BREAST BX UNI /CLIP PRIMARY SD MA/L STEREOTACTIC GUIDED BIOPSY LEFT BREAST WITH POST DIGITAL MAMMOGRAPHIC IMAGING AND RADIOGRAPHIC SPECIMEN IMAGIN10/09/2016 CLINICAL: R92.8. PATIENT CONSENT: I discussed the risks, benefits and alternatives for the procedure with the patient. Patient acknowledged understanding and informed written consent was obtained. A time out was performed prior to the procedure to confirm patient identification and the location of the lesion. Correlation is made to exams dated: 09/05/2016 mammogram, 07/13/2016 mammogram and 07/12/2015 mammogram - [facility]. A stereotactic guided biopsy was performed for the area of grouped pleomorphic calcifications located in the left breast at 3 o'clock posterior depth 6.5 cm from the nipple. The skin was prepped in the usual manner. Local anesthetic was administered to the access site. A skin bentley was made in the breast. The abnormality was approached from the lateral aspect using a prone table. A 9 gauge biopsy needle was placed adjacent to the abnormality under computer guidance and confirmatory stereotactic mammography images were obtained to document needle placement. Once the needle was documented to be in the correct location, eight specimens were obtained using Suros Eviva. The patient received additional local anesthetic during the procedure. A skin closure strip was applied to the access site. Post procedure digital mammographic imaging demonstrates partial removal of the calcifications. The specimens were sent to the laboratory for pathological analysis. These calcifications are actually located in the deep central left breast. The patient had pain on the first 2 cores and an additional 30cc of lidocaine were administered to her breast after these cores. Looking at the specimen and post-biopsy hematoma, an artery was likely biopsied. There is a 4cm hematoma on the post-clip films. This is likely a combination of hematoma and additional 30cc of Lidocaine. A compression bandage was placed on the patient prior to discharge. She was also told to restrict exercise for 1 week. IMPRESSION: STEREOTACTIC GUIDED BIOPSY BENIGN Stereotactic guided biopsy of the area of grouped pleomorphic calcifications in the left breast posterior depth was successful. Complication with this procedure was a medium hematoma treated with local pressure until hemostasis was achieved. The imaged specimens includes the calcifications. 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 Pathology results are concordant with imaging findings. Four of eight specimens have micro calcifications. These calcifications are actually located in the deep central left breast. Recommend a follow-up left breast mammogram with magnification in 6 months to establish short term stability of the biopsied area. Professional services are provided by the [facility]. Lidia de la garza rn/:10/11/2016 13:02:45 Dub Room Engineer: Elba LEE)(Elena), [facility] This exam was dictated and interpreted by [id number] for Bryon Rodgers. letter sent: Post Bx Results 10/09/2016 - - Read by: Lidia Tapia MD Dictated Date/time: 10/15/16 09:31 Electronically Signed by: Lidia Tapia MD 10/15/16 09:31 FINAL REPORT - - Read by: Lidia Tapia MD Dictated Date/time: 10/11/16 13:02 Electronically Signed by: Lidia Tapia MD 10/11/16 13:02 FINAL REPORT [facility] Liver Protocol w/wo IV contrast CT [facility] Liver Protocol w/wo IV contrast CT EXAM: CT ABDOMEN WITH AND WITHOUT CONTRAST DATE: 09/11/2016 INDICATION: R10.9 Unspecified abdominal pain, I85.00 Esophageal varices without bleeding,K70.30 Alcoholic cirrhosis of liver without ascites COMPARISON: 10/31/2015. TECHNIQUE: Volumetric CT acquisition of the abdomen both prior to and following intravenous contrast, in precontrast, arterial, portal venous and delayed phases of enhancement, per the dynamic liver protocol. Axial, sagittal and coronal reconstructions. IV contrast: 100 mL Omnipaque 350 Oral contrast: 450 mL Volumen DLP: 1403 FINDINGS: Lines and tubes: None. Lower thorax: Clear. Liver Craniocaudal length: 21 cm. Enlarged Density: Significantly heterogeneous.. Surface nodularity: Present. Enhancing hepatic masses > 2cm: None. Enhancing hepatic masses < 2cm: 1. An 8 mm enhancing nodule is seen along the liver edge in segment 6 (4/76). It is difficult to see on the portal venous phase and there is no evidence of washout on the delayed phase. 2. A 7 mm focus of enhancement is seen in the right lobe of the liver, segment 6 posteriorly (4/66). Again, this is poorly visualized on the portal venous phase due to severe heterogeneity of the liver. No definite washout is appreciated. Lesions were not seen on the previous study Non-enhancing/cystic hepatic lesions: Again noted is a large geographic distribution of decreased enhancement in the left lobe of the liver, unchanged and likely related to perfusion aberration.. Hepatic vessels: Hepatic arterial anatomy: Conventional. Arterial stenoses: None. Portal vein: Patent. Caliber: 1.6 cm Portosystemic collaterals are present in the capacity of esophageal varices. Hepatic, splenic and superior mesenteric veins, and IVC: Patent. Regional lymph nodes: Normal. Biliary tree: No intra- or extrahepatic biliary ductal dilation. Gallbladder: Normal. No CT evidence of gallstones. Pancreas: Normal. Spleen: Normal. Adrenals: Normal. Kidneys: Right kidney is small with a lobulated contour and some scattered cortical scarring. Gastrointestinal tract: Normal caliber. Peritoneum and retroperitoneum: Small amount of amount of ascites is seen surrounding the liver and gallbladder. No focal fluid collection is seen. Distant lymph nodes: Normal. Vasculature: Normal. Bones: Normal. Soft tissues: Normal. IMPRESSION: 1. 2 subcentimeter enhancing nodules in the right lobe of the liver as described, not seen on the previous study without evidence of washout. LI-RADS 3. 2. Enlarged liver with heterogeneous density and nodular contour compatible with cirrhosis. Large geographic area of decreased enhancement in the left lobe of the liver is likely perfusion aberration. 3. Likely small esophageal varices. 4. Prominent spleen. 5. Slight perihepatic ascites. 6. Atrophic right kidney with cortical thinning and lobulations, unchanged. 09/11/2016 - - Read by: Chyna Cornejo MD Dictated Date/time: 09/11/16 13:24 Electronically Signed by: Chyna Cornejo MD 09/11/16 13:42 FINAL REPORT [facility] Digital Mammo DX Uni MA Digital Mammo DX Uni MA - DIGITAL MAMMO DX UNI MA/L UNILATERAL LEFT DIGITAL DIAGNOSTIC MAMMOGRAM WITH CAD: 09/05/2016 CLINICAL: R92.8 Other Abnormal And Inconclusive Findings On Diagnostic Imaging Of Breast. Current study was evaluated with a Computer Aided Detection (CAD) system. Comparison is made to exams dated: 07/13/2016 mammogram and 07/12/2015 mammogram - [facility]. There are scattered fibroglandular densities in the left breast. There are benign vascular calcifications bilaterally. There are grouped pleomorphic calcifications in the left breast at 3 o'clock posterior depth 6.5 cm from the nipple. No other significant masses or calcifications are seen in the breast. IMPRESSION: SUSPICIOUS OF MALIGNANCY The grouped pleomorphic calcifications in the left breast are suspicious of malignancy. A stereotactic biopsy is recommended. SUMMARY: These results were discussed with the patient and her daughter. Ranjeet Cannon M.D., cm/penrad:09/05/2016 15:14:33 Dub Room Engineer: Heaven WHITFIELD(R)(Elena), [facility] This exam was dictated and interpreted by [id number] for MARIELENA Clemons. letter sent: Biopsy Mammogram BI-RADS: 4 Suspicious abnormality 09/05/2016 - - Read by: Parrish Cannon III, MD Dictated Date/time: 09/05/16 15:14 Electronically Signed by: Parrish Cannon III, MD 09/05/16 15:14 FINAL REPORT [facility] Digital Mammo Screening Fam MA Digital Mammo Screening Fam MA - DIGITAL MAMMO SCREENING FAM MA BILATERAL DIGITAL SCREENING MAMMOGRAM WITH CAD: 07/13/2016 CLINICAL: Z12.31 Encounter For Screening Mammogram For Malignant Neoplasm Of Breast. Current study was evaluated with a Computer Aided Detection (CAD) system. Comparison is made to exam dated: 07/12/2015 mammogram - [facility]. There are scattered fibroglandular densities in both breasts. There are benign vascular calcifications bilaterally. There are grouped calcifications in the left breast at 3 o'clock posterior depth 6.5 cm from the nipple. No other significant masses, calcifications, or other findings are seen in either breast. IMPRESSION: INCOMPLETE: NEEDS ADDITIONAL IMAGING EVALUATION The grouped calcifications in the left breast are indeterminate. Magnification views are recommended. Ranjeet Cannon M.D. cm/penrad:07/16/2016 10:24:16 Dub Room Engineer: Heaven WHITFIELD(R)(Elena), [facility] This exam was dictated and interpreted by [id number] for JAYLIN Benitez 15. letter sent: Additional Imaging Mammogram BI-RADS: 0 Indeterminate 07/13/2016 - - Read by: Parrish Moore MD Dictated Date/time: 07/16/16 10:24 Electronically Signed by: Parrish Moore MD 07/16/16 10:24 FINAL REPORT KATHARINEKenton [facility] Liver w Liver vessels Doppler US Liver w Liver vessels Doppler US EXAM: US liver COMPLETE WITH DOPPLER DATE: 03/02/2016 10:38 AM CDT INDICATION: K70.30 Alcoholic cirrhosis of liver without ascites ADDITIONAL INFORMATION: None. COMPARISON: CT from 10/31/2015 TECHNIQUE: Multiplanar grayscale, color Doppler and spectral Doppler ultrasound of the liver FINDINGS: Liver: Craniocaudal length: 19.6 cm. Echogenicity: Coarsened Surface nodularity: Present Mass (size and location): None. Hepatic and portal vasculature: Hepatic artery: Patent with antegrade pulsatile flow. Resistive index: 0.7 Portal veins: Patent with normal hepatopetal monophasic flow. Hepatic veins: Patent with normal hepatofugal multiphasic flow. Splenic artery: Patent with antegrade pulsatile flow. Splenic vein: Patent with normal flow. Bile ducts: Common bile duct diameter: 0.26 cm. Intrahepatic ducts: Normal. Gallbladder: Gallstones: None. Gallbladder sludge: None. A 4 mm gallbladder polyp is seen. Gallbladder wall: 0.24 cm. Pericholecystic fluid: None. Sonographic Spencer sign: Absent. Pancreas: Head and uncinate process: Normal. Body and tail: Not seen. Spleen: Craniocaudal length: 15 cm. Mass or focal lesion (size and location): None. Abdominal aorta and IVC: Visible portions are normal. Ascites: None. IMPRESSION: 1. Cirrhosis with sequela of portal hypertension. 2. Patent hepatic vessels. 3. Small gallbladder polyp. 03/12/2016 - - Read by: Steve Messina MD Dictated Date/time: 03/12/16 10:19 Electronically Signed by: Steve Messina MD 03/12/16 10:25 FINAL REPORT XOCHITL Mota [facility] Liver Protocol w/wo IV contrast CT Abd Liver Protocol w/wo IV contrast CT EXAM: CT ABDOMEN WITHOUT AND WITH IV CONTRAST DATE: 10/31/2015. INDICATION: Alcoholic cirrhosis of the liver. COMPARISON: None. TECHNIQUE: : Helical acquisition of the abdomen was obtained from the lung bases to the symphysis pubis after administration of oral contrast, before and after uneventful administration of intravenous contrast in the precontrast, arterial, portal venous and delayed phases of contrast enhancement. Axial, sagittal and coronal images were interpreted.] FINDINGS: The liver shows CT appearance of cirrhosis. The right lobe of the liver measures 19 cm on the coronal reformats. Hepatic masses: No arterial enhancing lesion is seen. A large geographic area of decreased enhancement is seen within the left lobe of the liver. Hepatic vasculature and collaterals: Portal vein is patent. Portosystemic collaterals are not identified.. Hepatic, splenic and superior mesenteric veins, and IVC are patent. Celiac trunk and SMA - No stenosis. Hepatic artery - The hepatic artery is patent. The hepatic artery anatomy is conventional. Related extrahepatic findings (i.e. ascites, splenomegaly): Spleen - The spleen measures 13 cm in length. There are no focal splenic masses. Ascites - There is no ascites. Biliary system and pancreas: There is no intrahepatic or extrahepatic biliary dilatation. The gallbladder is normal.There are no pancreatic masses or pancreatic ductal dilation. Kidneys: The lower right kidney is atrophic with cortical thinning compared to the left. No hydronephrosis is seen. Delayed images demonstrate prompt excretion of contrast bilaterally. Adrenal glands: The adrenal glands are normal. Stomach is decompressed and poorly visualized. Small bowel loops are normal in caliber. The appendix is visualized and is normal. The visualized colon unremarkable. No worrisome osseous lesion is seen. IMPRESSION: 1. Cirrhosis 2. No focal arterially enhancing lesion is seen. Large geographic distribution of decreased enhancement seen the left of the liver likely related to perfusion aberration. 3. Cortical thinning and mild atrophy of the right kidney. 10/31/2015 - - Read by: Chyna Cornejo MD Dictated Date/time: 10/31/15 13:43 Electronically Signed by: Chyna Cornejo MD 10/31/15 13:56 FINAL REPORT MARIELENA Mota Liver w Liver vessels Doppler US Liver w Liver vessels Doppler US EXAM: Liver with Liver vessels Doppler US HISTORY: 571.2 Alcoholic Cirrhosis of Liver COMPARISON: 06/14/2015 TECHNIQUE: Grayscale, color doppler and spectral doppler images were obtained of the right upper quadrant of the abdomen. FINDINGS: The liver measures 20 cm. Hepatic echogenicity suggests fatty infiltration and/or chronic hepatocellular disease. There is no hepatic mass or intrahepatic ductal dilatation. The portal veins are patent with antegrade flow. The hepatic veins and main hepatic artery are patent. The common bile duct measures 0.3 cm. Small gallbladder polyps are noted. There is no evidence of gallbladder wall thickening. Sonographic Spencer sign was negative. No gallstone is seen. The pancreas is grossly sonographically normal. The right kidney appears normal without hydronephrosis. The visualized abdominal aorta and IVC are normal. IMPRESSION: Hepatic echogenicity suggests fatty infiltration and/or chronic hepatocellular disease. Small gallbladder polyps again noted. 07/12/2015 - - Read by: Konrad Ruiz MD Dictated Date/time: 07/12/15 16:19 Electronically Signed by: Konrad Ruiz MD 07/12/15 16:22 FINAL REPORT MARIELENA Clemons Bone Density DXA Dual Energy MA Bone Density DXA Dual Energy MA - Bone Density DXA [employer] MA BONE DENSITY EVALUATION: 07/12/2015 CLINICAL DATA: Post menopausal and clinical risk for osteoporosis. FINDINGS: Bone density evaluation was performed 07/12/2015 on the AP L1-L4 region of spine using Lunar Dual Energy X-Ray Absorptiometry. The BMD average for the exam is 1.123 g/cm2. The T-score is -0.50 and the Z-score is -0.40. This matches the World Health Organization's criteria for normal bone density and places the patient within normal limits of fracture risk. An additional bone density evaluation was performed 07/12/2015 on the right femur neck using Lunar [employer] X-Ray Absorptiometry. The BMD average for the exam is 1.112 g/cm2. The T-score is 0.50 and the Z-score is 1.10. This matches the World Health Organization's criteria for normal bone density and places the patient within normal limits of fracture risk. An additional bone density evaluation was performed 07/12/2015 on the right hip using Lunar [employer] Energy X-Ray Absorptiometry. The BMD average for the exam is 1.104 g/cm2. The T-score is 0.80 and the Z-score is 0.90. This matches the World Health Organization's criteria for normal bone density and places the patient within normal limits of fracture risk. An additional bone density evaluation was performed 07/12/2015 on the left femur neck using Lunar [employer] Energy X-Ray Absorptiometry. The BMD average for the exam is 1.051 g/cm2. The T-score is 0.10 and the Z-score is 0.60. This matches the World Health Organization's criteria for normal bone density and places the patient within normal limits of fracture risk. An additional bone density evaluation was performed 07/12/2015 on the left hip using [employer]ar [employer] X-Ray Absorptiometry. The BMD average for the exam is 1.121 g/cm2. The T-score is 0.90 and the Z-score is 1.10. This matches the World Health Organization's criteria for normal bone density and places the patient within normal limits of fracture risk. IMPRESSION: BONE DENSITY WITHIN NORMAL LIMITS Patient is at normal risk for fracture. This exam was dictated and interpreted by [id number] for MARIELENA Rodgers. John Paul farley/elijah:07/12/2015 17:53:49 Dub Room Engineer: Sonia LEE)(M), [facility] 07/12/2015 - - Read by: John Paul Mcallister MD Dictated Date/time: 07/12/15 17:53 Electronically Signed by: John Paul Mcallister MD 07/12/15 17:53 FINAL REPORT MARIELENA LEUNG [facility] Digital Mammo Screening Fam MA Digital Mammo Screening Fam MA - DIGITAL MAMMO SCREENING FAM MA BILATERAL DIGITAL SCREENING MAMMOGRAM WITH CAD: 07/12/2015 CLINICAL: Annual Screening. Current study was evaluated with a Computer Aided Detection (CAD) system. No prior exams were available for comparison. There are scattered fibroglandular densities in both breasts. There are benign vascular calcifications in both breasts. No significant masses, calcifications, or other findings are seen in either breast. IMPRESSION: BENIGN There is no mammographic evidence of malignancy. A 1 year screening mammogram is recommended. John Paul farley/penrad:07/12/2015 11:43:50 Dub Room Engineer: Tiffany LEE)(Elena), [facility] This exam was dictated and interpreted by [id number] for MARIELENA Rodgers. letter sent: Normal exam Mammogram BI-RADS: 2 Benign 07/12/2015 - - Read by: John Paul Mcallister MD Dictated Date/time: 07/12/15 11:43 Electronically Signed by: John Paul Mcallister MD 07/12/15 11:43 FINAL REPORT MARIELENA Diora Abdomen complete US Abdomen complete US EXAM: Abdomen complete US HISTORY: Elevated LFT's COMPARISON: None ABDOMEN ULTRASOUND CLINICAL HISTORY: Abdominal pain. COMPARISON IMAGIN02/18/2015 CT FINDINGS: Body habitus limits fine detail. Liver: Measures 21 cm in length (normal: 13-17 cm). Echogenicity suggests fatty infiltration and/or chronic hepatocellular disease. Portal vein is patent. Biliary: No gallstones, gallbladder wall thickening, or sonographic Spencer's sign. Small gallbladder polyps are noted. There is no biliary duct dilation. Pancreas: Obscured by bowel gas and unable to be evaluated. Spleen: Measures 18 cm in maximal dimension (normal < 13 cm). No focal lesion is seen. Kidneys: Right and left measure 11.3 and 12.1 cm in length, respectively (normal: 9-12 cm). No hydronephrosis, suspicious renal mass, or large shadowing stone. The pancreas, aorta and IVC were not well seen due to bowel gas. IMPRESSION: Hepatomegaly. Hepatic echogenicity suggests fatty infiltration and/or chronic hepatocellular disease. Splenomegaly. Gallbladder polyps. 06/14/2015 - - Read by: Konrad Ruiz MD Dictated Date/time: 06/14/15 17:10 Electronically Signed by: Konrad Ruiz MD 06/14/15 17:14 FINAL REPORT XOCHITL Clemons Chest 1view Chest 1view EXAM: XR CHEST 1 VIEW DATE: 12/06/2014 at 2053 hours INDICATION: Line Placement COMPARISON: 12/06/2014 at 1452 hours TECHNIQUE: Single AP view of the chest DISCUSSION: The right PICC tip is at the superior cavoatrial junction. The right jugular central venous catheter is stable with its tip in the proximal atrium. There is unchanged platelike atelectasis in the left lower lobe. No pleural based abnormality is identified. The cardiomediastinal silhouette is normal for technique. No acute bony abnormality is identified. IMPRESSION: The right PICC tip is at the superior cavoatrial junction. Unchanged left lower lobe subsegmental atelectasis. 12/06/2014 - - Read by: Juani Smith MD Dictated Date/time: 12/06/14 21:55 Electronically Signed by: Juani Smith MD 12/06/14 21:58 FINAL REPORT [facility] Chest 1view Chest 1view Chest one view, December 06, 2014 at 1452 HISTORY: 54-year-old female with PICC line placement. FINDINGS: Comparison is made to December 02. The cardiomediastinal silhouette is stable. There is platelike atelectasis in the left lower lobe. The costophrenic sulci are sharp, without effusions. A new right-sided PICC line has its tip in the proximal right atrium. A right jugular central venous catheter is stable. IMPRESSION: 1. New right-sided PICC line with tip in the proximal right atrium. Consider pulling it back about 2 cm as clinically indicated. 2. Left lower lobe subsegmental atelectasis. 12/06/2014 - - Read by: Rosalind Seya MD Dictated Date/time: 12/06/14 15:10 Electronically Signed by: Rosalind Seay MD 12/06/14 15:53 FINAL REPORT [facility] Vital Signs Vital Sign Value Date Comments Source Weight 71.364 02/10/2019 [facility] Height 157.48 cm 02/10/2019 [facility] BMI Calculated 28.78 02/10/2019 [facility] Systolic (mm Hg) 122 02/10/2019 [facility] Diastolic (mm Hg) 79 02/10/2019 [facility] Heart Rate 69 02/10/2019 [facility] Respitory Rate 16 02/10/2019 [facility] Heart Rate 18 02/05/2019 [facility] Respitory Rate 20 02/05/2019 [facility] Systolic (mm Hg) 142 02/05/2019 [facility] Diastolic (mm Hg) 87 02/05/2019 [facility] Heart Rate 60 02/04/2019 [facility] Temperature Oral (F) 98.0 F 02/04/2019 [facility] Respitory Rate 18 02/04/2019 [facility] Systolic (mm Hg) 136 02/04/2019 [facility] Diastolic (mm Hg) 84 02/04/2019 [facility] Temperature Oral (F) 97.4 F 02/04/2019 [facility] Heart Rate 65 02/04/2019 [facility] Respitory Rate 16 02/04/2019 [facility] Systolic (mm Hg) 179 02/04/2019 [facility] Diastolic (mm Hg) 106 02/04/2019 [facility] Weight 68.636 05/20/2018 [facility] BMI Calculated 27.68 05/20/2018 [facility] Height 157.48 cm 05/20/2018 [facility] Heart Rate 70 05/20/2018 [facility] Systolic (mm Hg) 132 05/20/2018 [facility] Diastolic (mm Hg) 85 05/20/2018 [facility] Temperature Oral (F) 98.2 F 02/28/2018 [facility] Systolic (mm Hg) 107 02/28/2018 [facility] Diastolic (mm Hg) 71 02/28/2018 [facility] Respitory Rate 15 02/28/2018 [facility] Respitory Rate 16 02/28/2018 [facility] Systolic (mm Hg) 103 02/28/2018 [facility] Diastolic (mm Hg) 62 02/28/2018 [facility] Respitory Rate 15 02/28/2018 [facility] Systolic (mm Hg) 112 02/28/2018 [facility] Diastolic (mm Hg) 74 02/28/2018 [facility] Height 170.18 cm 02/27/2018 [facility] Temperature Oral (F) 98 F 02/27/2018 [facility] BMI Calculated 21.97 02/27/2018 [facility] Weight 63.636 02/27/2018 [facility] Heart Rate 94 02/27/2018 [facility] BMI Calculated 26.76 11/18/2017 [facility] Weight 66.364 11/18/2017 [facility] Heart Rate 70 11/18/2017 [facility] Respitory Rate 16 11/18/2017 [facility] Height 157.48 cm 11/18/2017 [facility] Systolic (mm Hg) 131 11/18/2017 [facility] Diastolic (mm Hg) 82 11/18/2017 [facility] Weight 65.909 09/30/2017 [facility] BMI Calculated 26.58 09/30/2017 [facility] Systolic (mm Hg) 144 09/30/2017 [facility] Diastolic (mm Hg) 86 09/30/2017 [facility] Respitory Rate 18 09/30/2017 [facility] Heart Rate 79 09/30/2017 [facility] Temperature Oral (F) 98.4 F 09/30/2017 [facility] Height 157.48 cm 09/30/2017 [facility] Temperature Oral (F) 98.2 F 2017 [facility] Respitory Rate 20 2017 [facility] Heart Rate 63 2017 [facility] Systolic (mm Hg) 129 2017 [facility] Diastolic (mm Hg) 75 2017 [facility] Systolic (mm Hg) 142 2017 [facility] Diastolic (mm Hg) 82 2017 [facility] Respitory Rate 20 2017 [facility] Heart Rate 70 2017 [facility] Temperature Oral (F) 98.7 F 2017 [facility] Height 157.48 cm 2017 [facility] BMI Calculated 25.66 2017 [facility] Weight 63.636 2017 [facility] Heart Rate 74 2017 [facility] Respitory Rate 20 2017 [facility] Temperature Oral (F) 97.9 F 2017 [facility] Systolic (mm Hg) 158 2017 [facility] Diastolic (mm Hg) 99 2017 [facility] Weight 61.818 07/10/2017 [facility] BMI Calculated 24.93 07/10/2017 [facility] Temperature Oral (F) 98.4 F 07/10/2017 [facility] Height 157.48 cm 07/10/2017 [facility] Heart Rate 82 07/10/2017 [facility] Respitory Rate 18 07/10/2017 [facility] Systolic (mm Hg) 154 07/10/2017 [facility] Diastolic (mm Hg) 100 07/10/2017 [facility] Temperature Oral (F) 97.8 F 03/16/2017 [facility] Heart Rate 80 03/16/2017 [facility] Respitory Rate 18 03/16/2017 [facility] Systolic (mm Hg) 150 03/16/2017 [facility] Diastolic (mm Hg) 86 03/16/2017 [facility] BMI Calculated 26.58 03/16/2017 [facility] Height 157.48 cm 03/16/2017 [facility] Weight 65.909 03/16/2017 [facility] Height 157.48 cm 12/17/2016 [facility] BMI Calculated 26.39 12/17/2016 [facility] Weight 65.455 12/17/2016 [facility] Respitory Rate 16 12/17/2016 [facility] Heart Rate 62 12/17/2016 [facility] Systolic (mm Hg) 127 12/17/2016 [facility] Diastolic (mm Hg) 79 12/17/2016 [facility] BMI Calculated 26.92 10/19/2016 [facility] Weight 66.364 10/19/2016 [facility] Height 157 cm 10/19/2016 [facility] Temperature Oral (F) 98.0 F 10/19/2016 [facility] Systolic (mm Hg) 129 10/19/2016 [facility] Diastolic (mm Hg) 79 10/19/2016 [facility] Heart Rate 52 10/19/2016 [facility] Center Respitory Rate 18 10/19/2016 [facility] Heart Rate 62 08/07/2016 [facility] Systolic (mm Hg) 148 08/07/2016 [facility] Diastolic (mm Hg) 87 08/07/2016 [facility] Height 157.48 cm 08/07/2016 [facility] BMI Calculated 27.31 08/07/2016 [facility] Weight 67.727 08/07/2016 [facility] Weight 71.875 01/31/2016 [facility] BMI Calculated 28.98 01/31/2016 [facility] Heart Rate 80 01/31/2016 [facility] Temperature Oral (F) 97.1 F 01/31/2016 [facility] Height 157.48 cm 01/31/2016 [facility] Systolic (mm Hg) 126 01/31/2016 [facility] Diastolic (mm Hg) 91 01/31/2016 [facility] BMI Calculated 30.64 09/27/2015 [facility] Weight 75.909 09/27/2015 [facility] Height 157.4 cm 09/27/2015 [facility] Heart Rate 72 09/27/2015 [facility] Systolic (mm Hg) 126 09/27/2015 [facility] Diastolic (mm Hg) 77 09/27/2015 [facility] Weight 84.091 06/21/2015 [facility] BMI Calculated 33.91 06/21/2015 [facility] Height 157.48 cm 06/21/2015 [facility] Temperature Oral (F) 98.3 F 06/21/2015 [facility] Heart Rate 83 06/21/2015 [facility] Systolic (mm Hg) 129 06/21/2015 [facility] Diastolic (mm Hg) 85 06/21/2015 [facility] Systolic (mm Hg) 157 12/28/2014 [facility] Diastolic (mm Hg) 87 12/28/2014 [facility] Respitory Rate 15 12/28/2014 [facility] Heart Rate 63 12/28/2014 [facility] Height 157 cm 12/28/2014 [facility] Weight 85.2 12/28/2014 [facility] BMI Calculated 34.57 12/28/2014 [facility] Encounters Location Location Details Encounter Type Encounter Number Reason For Visit Attending Provider ADM Date DC Date Status Source [facility] Outpatient [id number] Remington Pereira 12/28/2014 12/29/2014 [facility] Bedded Outpatient [id number] Haider Reilly 01/05/2015 01/05/2015 [facility] [place] [facility] [id number] Haider Reilly 02/18/2015 02/19/[address] [place] [facility] EDNE Phone Message [id number] 02/23/2015 02/25/2015 [facility] Phone Message [id number] 03/23/2015 03/25/2015 [facility] [place] [facility] [id number] Shawn Bright 06/14/2015 06/15/[address] [place] [facility] Outpatient [id number] Haider Reilly 06/21/2015 06/22/2015 [facility] Bedded Outpatient [id number] Haider Melba 06/30/2015 06/30/2015 [facility] [place] [facility] [id number] Haider Reilly 07/12/2015 07/13/[address] [place] [facility] Outpatient [id number] Haider Reilly 09/27/2015 09/28/2015 [facility] [place] [facility] [id number] Haider Reilly 10/31/2015 11/01/2015 [facility] [id number] Haider Reilly 01/31/2016 02/01/2016 [facility] Bedded Outpatient [id number] Haider Reilly 02/22/2016 02/22/2016 [facility] [place] [facility] [id number] Haider Haralson 03/12/2016 03/13/2016 [facility] [place] [facility] [place] [facility] [id number] Deangelo Alloju 07/13/2016 07/14/[address] [place] [facility] ED[facility] Outpatient [id number] Remington Pereira 08/07/2016 08/08/2016 [facility] [place] [facility] [id number] Deangelo Alloju 09/05/2016 09/06/2016 [place] [facility] Outpatient Imaging [place] Out[facility] Di[facility] [id number] Remington Pereira 09/11/2016 09/12/2016 [facility] [place] [facility] Outpatient Imaging - [facility] Outpt Diag Services [id number] Deangelo Duong 10/09/2016 10/10/2016 OP [facility] On[facility] [id number] Erika Lambert 10/19/2016 11/18/2016 [facility] ED[facility] Outpatient [id number] Choco Greenwood 12/17/2016 12/18/2016 [facility] [place] [facility] [id number] Choco Greenwood 02/01/2017 02/02/2017 OPID [facility] Bedded Outpatient [id number] Choco Greenwood 03/05/2017 03/05/2017 [facility] Emergency [id number] Bharat Shipley 03/16/2017 03/16/2017 [facility] Outpatient [id number] Tiki Mejia 06/21/2017 06/22/2017 [facility] Emergency [id number] Galo Greenwood 07/10/2017 07/10/2017 [facility] Outpatient Imaging [place] Out[facility] Diag Services [id number] Tiki Mejia 09/10/2017 09/11/2017 OPID [facility]patient [facility] [place] Outpt Diag Services [id number] Choco Greenwood 2017 09/27/2017 OPID [facility] Emergency [id number] Brendan Gardner 2017 2017 [facility] Emergency [id number] Lev Llanes 09/30/2017 10/01/2017 [facility] [place] Out[facility]ag Services [id number] Choco Greenwood 11/14/2017 11/15/2017 OPID [facility] EDNE Outpatient [id number] Choco Greenwood 11/18/2017 11/19/2017 [facility] Emergency [id number] Magdalene Ragland 02/27/2018 02/28/2018 [facility] ED[facility] Outpatient [id number] Tiki Mejia 03/27/2018 03/28/2018 [facility] [place] Out Diag Services [id number] Choco Greenwood 05/05/2018 05/06/2018 [facility]patient [id number] Choco Greenwood 05/20/2018 05/21/2018 [facility] Bedded Outpatient [id number] Choco Greenwood 06/10/2018 06/10/2018 [facility] Emergency [id number] Fallon Merry 02/04/2019 02/05/2019 [facility] Outpatient [id number] Tiki Mejia 02/10/2019 02/11/2019 [facility] Procedures Procedure Code Date Perfomer Comments Source Esophagogastroduodenoscopy [id number] 02/22/2016 [facility] Esophagogastroduodenoscopy [id number] 02/22/2016 [facility] [place] Esophagogastroduodenoscopy [id number] 02/22/2016 [facility] Esophagogastroduodenoscopy [id number] 02/22/2016 [facility] [place] Esophagogastroduodenoscopy [id number] 02/22/2016 [facility] [place] [facility] [id number] 06/30/2015 [facility] Colonoscopy [id number] 06/30/2015 [facility] [place] Colonoscopy [id number] 06/30/2015 [facility] Colonoscopy [id number] 06/30/2015 [facility] [place] Colonoscopy [id number] 06/30/2015 [facility] [place]
--- OUTSIDE RECORDS SUMMARY | 2019-02-16 17:48 | XMS REPORT | Summary of Care ---
Author Author [facility] Organization [facility] Address Unknown Phone Unavailable Encounter CARMEN Medina(STEFANI) [id number] Date(s): 06/10/18 - 06/10/18 [facility] [address] [place] [address] [phone] Discharge Disposition: Home or Self Care Attending Physician: Choco Greenwood MD Referring Physician: Choco Greenwood MD Vital Signs No data available for this section Problem List Condition Effective Dates Status Health [...] Severity Status morphine Active NKDA Active Medications No data available for this section Results No data available for this section Immunizations Given and Recorded Vaccine Date Status [...] Last use: This past holiday season, around [place].. Previous treatment: None. Alcohol use interferes with [...]
--- OUTSIDE RECORDS SUMMARY | 2019-02-16 17:48 | XMS REPORT | Summary of Care ---
Author Author [facility] Organization [facility] Address Unknown Phone Unavailable Encounter HQ Adam(FIN) [id number] Date(s): 02/04/19 - 02/04/19 [facility] [address] [place] [address]- Encounter Diagnosis Essential (primary) hypertension (Discharge Diagnosis) - 02/04/19 Shortness of breath (Discharge Diagnosis) - 02/04/19 Discharge Disposition: Home or Self Care Attending Physician: Fallon Sousa MD Vital Signs 1 2 3 Most recent to oldest [Reference Range]: 98.0 DegF (02/04/19 5:39 PM) 97.4 DegF (02/04/19 2:42 PM) Temperature Oral [96.4-99.1 DegF] 142/87 mmHg *HI* (02/04/19 8:12 PM) 136/84 mmHg (02/04/19 5:39 PM) 179/106 mmHg *HI* (02/04/19 2:42 PM) Blood Pressure [90-140/60-90 mmHg] 20 BRMIN (02/04/19 8:12 PM) 18 BRMIN (02/04/19 5:39 PM) 16 BRMIN (02/04/19 2:42 PM) Respiratory Rate [14-20 BRMIN] 18 bpm *LOW* (02/04/19 8:12 PM) 60 bpm (02/04/19 5:39 PM) 65 bpm (02/04/19 2:42 PM) Peripheral Pulse Rate [60-100 bpm] Problem List Condition Effective Dates Status Health [...] Alerts Substance Reaction Severity Status morphine Active Medications No data available for this section Results ELECTROLYTES Most recent to 1 oldest [Reference Range]: Sodium Lvl [135-145 136 mEq/L mEq/L] (02/04/19 5:08 PM) Potassium Lvl 3.8 mEq/L [3.5-5.1 mEq/L] (02/04/19 5:08 PM) Chloride Lvl [95-109 103 mEq/L mEq/L] (02/04/19 5:08 PM) CO2 [24-32 mEq/L] 29 mEq/L (02/04/19 5:08 PM) AGAP [10.0-20.0 7.8 mEq/L mEq/L] *LOW* (02/04/19 5:08 PM) CHEM PANEL Most recent to 1 oldest [Reference Range]: Creatinine Lvl 0.63 mg/dL [0.50-1.40 mg/dL] (02/04/19 5:08 PM) eGFR 101 mL/min/1.73m2 1 *NA* (02/04/19 5:08 PM) BUN [7-22 mg/dL] 11 mg/dL (02/04/19 5:08 PM) B/C Ratio [6-25] 17 (02/04/19 5:08 PM) Glucose Lvl [70-99 74 mg/dL mg/dL] (02/04/19 5:08 PM) Total Protein 8.6 g/dL [6.4-8.4 g/dL] *HI* (02/04/19 5:08 PM) Albumin Lvl [3.5-5.0 4.1 g/dL g/dL] (02/04/19 5:08 PM) Globulin [2.7-4.2 4.5 g/dL g/dL] *HI* (02/04/19 5:08 PM) A/G Ratio [0.7-1.6] 0.9 (02/04/19 5:08 PM) Calcium Lvl 8.6 mg/dL [8.5-10.5 mg/dL] (02/04/19 5:08 PM) ALT [0-65 unit/L] 37 unit/L (02/04/19 5:08 PM) AST [0-37 unit/L] 37 unit/L (02/04/19 5:08 PM) Alk Phos [39-136 213 unit/L unit/L] *HI* (02/04/19 5:08 PM) Bili Total [0.2-1.3 0.6 mg/dL mg/dL] (02/04/19 5:08 PM) Lipase Lvl [73-393 261 unit/L unit/L] (02/04/19 5:08 PM) 1Result Comment: The eGFR is calculated [...] BMI. CARDIAC ENZYMES Most recent to 1 oldest [Reference Range]: Troponin-I <0.02 ng/mL [0.00-0.40 ng/mL] (02/04/19 5:08 PM) HEMATOLOGY Most recent to 1 oldest [Reference Range]: WBC [3.7-10.4 K/CMM] 3.3 K/CMM *LOW* (02/04/19 2:57 PM) RBC [4.20-5.40 5.10 M/CMM M/CMM] (02/04/19 2:57 PM) Hgb [12.0-16.0 g/dL] 14.1 g/dL (02/04/19 2:57 PM) Hct [36.0-48.0 %] 42.3 % (02/04/19 2:57 PM) MCV [80.0-98.0 fL] 83.0 fL (02/04/19 2:57 PM) MCH [27.0-31.0 pg] 27.6 pg (02/04/19 2:57 PM) MCHC [32.0-36.0 33.3 g/dL g/dL] (02/04/19 2:57 PM) RDW [11.5-14.5 %] 14.9 % *HI* (02/04/19 2:57 PM) MPV [7.4-10.4 fL] 8.4 fL (02/04/19 2:57 PM) Platelet [133-450 81 K/CMM K/CMM] *LOW* (02/04/19 2:57 PM) Segs [45.0-75.0 %] 67.6 % (02/04/19 2:57 PM) Lymphocytes 22.0 % [20.0-40.0 %] (02/04/19 2:57 PM) Monocytes [2.0-12.0 8.5 % %] (02/04/19 2:57 PM) Eosinophils [0.0-4.0 1.2 % %] (02/04/19 2:57 PM) Basophils [0.0-1.0 0.7 % %] (02/04/19 2:57 PM) Neutrophils # 2.2 K/CMM [1.5-8.1 K/CMM] (02/04/19 2:57 PM) Lymphocytes # 0.7 K/CMM [1.0-5.5 K/CMM] *LOW* (02/04/19 2:57 PM) Monocytes # [0.0-0.8 0.3 K/CMM K/CMM] (02/04/19 2:57 PM) Eosinophils # 0.1 K/CMM [0.0-0.5 K/CMM] (02/04/19 5:08 PM) Immunizations Given and Recorded Vaccine Date Status Refusal Reason hepatitis B adult vaccine1 01/30/16 Recorded hepatitis B adult vaccine 09/27/15 Given hepatitis B pediatric vaccine 06/21/15 Given 1Location History: Alison Allen RN Procedures Procedure Date Related Diagnosis Body Site Status Esophagogastroduodenoscopy 02/22/16 Completed Colonoscopy 06/30/15 Completed Social History Social History Type Response Substance Abuse Use: None. Alcohol Past, Type Beer. Frequency: Several times per day. Previous treatment: None. Smoking Status Never smoker; Previous treatment: None; Concerns about tobacco use in household: No; Exposure to Tobacco Smoke Friends occasionally smoke.; Cigarette Smoking Last 365 Days No; Reg Smoking Cessation Counseling No1 entered on: 09/22/18 1Cessation N/A Assessment and Plan No data available for this section
--- OUTSIDE RECORDS SUMMARY | 2019-02-16 17:48 | XMS REPORT | Summary of Care ---
Author Author [facility] Organization [facility] Address Unknown Phone Unavailable Encounter CARMEN Medina(STEFANI) [id number] Date(s): 02/10/19 - 02/10/19 [facility] [address] [place] [address]- [facility] [phone] Discharge Disposition: Home or Self Care Attending Physician: Tiki Mejia MD Referring Physician: Tiki Mejia MD Vital Signs Most recent to 1 oldest [Reference Range]: Height 157.48 cm (02/10/19 3:06 PM) Blood Pressure 122/79 mmHg [90-140/60-90 mmHg] (02/10/19 3:06 PM) Respiratory Rate 16 BRMIN [14-20 BRMIN] (02/10/19 3:06 PM) Peripheral Pulse 69 bpm Rate [60-100 bpm] (02/10/19 3:06 PM) Weight 71.364 kg (02/10/19 3:06 PM) Body Mass Index 28.78 m2 (02/10/19 3:06 PM) Problem List Condition Effective Dates Status Health Status Informant Abdominal pain, Active acute(Confirmed) Alcoholic cirrhosis Active of liver(Confirmed) Ankle 10/02/10 Resolved fracture(Confirmed)1 Ascites(Confirmed) Active Overweight (BMI Active 25.0-29.9)(Confirmed ) Depression(Confirmed Active ) Escherichia 09/26/17 Active coli(Confirmed)2, 3 Esophageal varices Active without bleeding(Confirmed) Migraine(Confirmed) Active Gastritis(Confirmed) Active High blood Active pressure(Confirmed) Breast lump in Active female(Confirmed) 1Approximate date 2Urine (ESBL), 2017 3Problem added by Discern Expert. Allergies, Adverse Reactions, Alerts Substance Reaction Severity Status morphine Active Medications carvedilol 3.125 mg oral tablet 3.125 mg=1 tab, PO, BID, # 60 tab, 1 Refill(s), Pharmacy: [facility] [id number] Start Date: 02/10/19 Stop Date: 04/11/19 Status: Ordered Results No data available for this section [...] Reg Smoking Cessation Counseling No1 entered on: 02/10/19 1Cessation N/A Assessment and Plan No data available for this section
--- NOTE | 2019-02-16 18:32 | NUR ---
PT STATED SHE TOOK HER BP MEDS BEFORE COMING TO ER. RETOOK PTS BP ITS 168/99, PT DENIES PAIN AND STATED DIZZINESS IS BETTER.
[2019-02-16] MEDS ORDERED: MECLIZINE HCL 12.5 MG TAB PO ONE (18:45)
== END 2019-02-16 19:18 | disposition home or self-care (01) ==
LOC: FSED 17:44
DX: I10 Essential (primary) hypertension (principal); D69.6 Thrombocytopenia, unspecified; F41.9 Anxiety disorder, unspecified
CPT/HCPCS: 80053; 85025; 99283; J8597

== ENCOUNTER 2019-04-14 20:34 | Emergency (ER) | payer MEDICARE, OTHER ==
[~2019-04-14] VITALS: Ht 157.5 cm; Wt 72.6 kg
--- OUTSIDE RECORDS SUMMARY | 2019-04-14 20:38 | XMS REPORT | Summary of Care ---
Author Author [facility] [place] Organization [facility] [place] Address Unknown Phone Unavailable Encounter CARMEN Medina(STEFANI) [id number] Date(s): 02/27/19 - 02/27/19 [facility] [place] [address] [place] [phone] Discharge Disposition: Home or Self Care Attending Physician: Marilin Silverman Referring Physician: Marilin Silverman MSN Vital Signs No data available for this [...]
--- OUTSIDE RECORDS SUMMARY | 2019-04-14 20:38 | XMS REPORT | Continuity of Care Document ---
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 [facility] WBC 3.6 K/CMM 3.7 - 10.4 02/28/2018 [facility] RBC 4.85 M/CMM 4.20 - 5.40 02/28/2018 [facility] Monocytes # 0.3 K/CMM 0.0 - 0.8 02/28/2018 [facility] Segs-Bands # 2.4 K/CMM 1.5 - 8.1 02/28/2018 [facility] Lymphocytes # 0.8 K/CMM 1.0 - 5.5 02/28/2018 [facility] Eosinophils 1.1 % 0.0 - 4.0 02/28/2018 [facility] Monocytes 7.9 % 2.0 - 12.0 02/28/2018 [facility] Basophils 0.5 % 0.0 - 1.0 02/28/2018 [facility] Segs 68.2 % 45.0 - 75.0 02/28/2018 [facility] Lymphocytes 22.3 % 20.0 - 40.0 02/28/2018 [facility] Chest 1view DX Chest 1view DX Clinical [...] radiographic evidence of acute cardiopulmonary disease. SL: [id number] 02/27/2018 - - Read by: Fidel Ogden MD Dictated Date/time: 02/27/18 19:34 Electronically Signed by: Fidel Ogden MD 02/27/18 19:35 FINAL REPORT [facility] Liver w Liver vessels Doppler US Liver w Liver vessels Doppler US EXAM: US ABDOMEN LIMITED DATE: 11/14/2017 7:37 AM CVT RN INDICATION: Cirrhosis. COMPARISON: Liver ultrasound with Doppler [...] 11/14/17 12:43 FINAL REPORT [facility] IMMUNOLOGY CDC HIV 4th GEN Negative *NA* (09/26/17 1:30 PM) Negative 2017 [facility] ELECTROLYTES AGAP 11.8 meq/L 10.0 - 20.0 2017 [facility] ELECTROLYTES eGFR 86 mL/min/1.73m2 2017 [...] should be multiplied by the estimated BMI. [facility] ELECTROLYTES BUN 12 mg/dL 7 - 22 2017 [facility] ELECTROLYTES Glucose Lvl 91 mg/dL 70 - 99 2017 [facility] ELECTROLYTES Chloride Lvl 102 meq/L 95 - 109 2017 [facility] ELECTROLYTES Potassium Lvl 3.8 meq/L 3.5 - 5.1 2017 [facility] ELECTROLYTES Sodium Lvl 140 meq/L 135 - 145 2017 [facility] ELECTROLYTES Creatinine Lvl 0.78 mg/dL 0.50 - 1.40 2017 [facility] ELECTROLYTES Calcium Lvl 9.0 mg/dL 8.5 - 10.5 2017 [facility] ELECTROLYTES CO2 30 meq/L 24 - 32 2017 [facility] HEMATOLOGY Platelet 90 K/CMM 133 - 450 2017 [facility] HEMATOLOGY RDW 15.0 % 11.5 - 14.5 2017 [facility] HEMATOLOGY MCHC 33.4 g/dL 32.0 - 36.0 2017 [facility] HEMATOLOGY MPV 8.1 fL 7.4 - 10.4 2017 [facility] HEMATOLOGY Hgb 13.7 g/dL 12.0 - 16.0 2017 [facility] HEMATOLOGY Hct 41.0 % 36.0 - 48.0 2017 [facility] HEMATOLOGY MCV 80.5 fL 80.0 - 98.0 2017 [facility] HEMATOLOGY MCH 26.8 pg 27.0 - 31.0 2017 [facility] HEMATOLOGY WBC 4.2 K/CMM 3.7 - 10.4 2017 [facility] HEMATOLOGY RBC 5.09 M/CMM 4.20 - 5.40 2017 [facility] HEMATOLOGY Monocytes # 0.3 K/CMM 0.0 - 0.8 2017 [facility] HEMATOLOGY Segs-Bands # 3.1 K/CMM 1.5 - 8.1 2017 [facility] HEMATOLOGY Lymphocytes # 0.7 K/CMM 1.0 - 5.5 2017 [facility] HEMATOLOGY Eosinophils 0.9 % 0.0 - 4.0 2017 [facility] HEMATOLOGY Lymphocytes 17.1 % 20.0 - 40.0 2017 [facility] HEMATOLOGY Monocytes 7.1 % 2.0 - 12.0 2017 [facility] HEMATOLOGY Basophils 0.4 % 0.0 - 1.0 2017 [facility] HEMATOLOGY Segs 74.5 % 45.0 - 75.0 2017 [facility] URINE AND STOOL UA Blood Trace *ABN* (09/26/17 12:45 PM) Negative 2017 [facility] URINE AND STOOL UA Urobilinogen 0.2 EU/dL 0.1 - 1.0 2017 [facility] URINE AND STOOL UA Leuk Est Small *ABN* (09/26/17 12:45 PM) Negative 2017 [facility] URINE AND STOOL UA Nitrite Negative (09/26/17 12:45 PM) Negative 2017 [facility] URINE AND STOOL UA Ketones Negative *NA* (09/26/17 12:45 PM) Negative 2017 [facility] URINE AND STOOL UA Bili Negative *NA* (09/26/17 12:45 PM) Negative 2017 [facility] URINE AND STOOL UA Spec Grav 1.007 <=1.030 2017 [facility] URINE AND STOOL UA Glucose Negative (09/26/17 12:45 PM) Negative 2017 [facility] URINE AND STOOL UA Protein Negative (09/26/17 12:45 PM) Negative 2017 [facility] URINE AND STOOL UA pH 6.5 5.0 - 8.0 2017 [facility] URINE AND STOOL UA Color Yellow *NA* (09/26/17 12:45 PM) Yellow 2017 [facility] URINE AND STOOL UA Turbidity Slight Cloudy (09/26/17 12:45 PM) Clear 2017 [facility] URINE AND STOOL UA Bacteria Few /HPF None Seen /HPF 2017 [facility] URINE AND STOOL UA [place] Yeast Few /HPF None Seen /HPF 2017 [facility] URINE AND STOOL UA Sq Epi Moderate /LPF Few /LPF 2017 [facility] URINE AND STOOL UA WBC 0-2 /HPF None Seen /HPF 2017 [facility] URINE AND STOOL UA RBC 0-2 /HPF 0 - 2 2017 [facility] Renal Stone CT Renal Stone [...] - This report was dictated by a Shift Stacker/Fellow. I have personally reviewed the images as well as the Resident's interpretation and agree with the findings. Read by: Jomar See DO Resident: Jomar See DO Dictated Date/time: 09/26/17 14:14 Electronically Signed by: David Donald MD 09/26/17 14:41 FINAL REPORT [facility] Abdomen w/wo contrast MRI Abdomen [...] MD 09/10/17 15:22 FINAL REPORT [facility] Digital Mammo DX Fam MA Digital Mammo DX Fam MA - DIGITAL MAMMO DX FAM MA BILATERAL DIGITAL DIAGNOSTIC MAMMOGRAM WITH CAD: 04/10/2017 CLINICAL: R92.8 Other Abnormal And Inconclusive Findings On Diagnostic Imaging Of Breast. Current study was evaluated with a Computer Aided Detection (CAD) system. Comparison is made to exams dated: 09/05/2016 mammogram, 07/13/2016 mammogram and 07/12/2015 mammogram - [facility]. There are scattered fibroglandular densities in both [...] are provided by the [facility] Division of Diagnostic Imaging. Ranjeet Cannon M.D., cm/elijah:04/10/2017 10:20:18 Passenger Solicitor: Heaven WHITFIELD(R)(Elena), [facility] This exam was dictated and interpreted by [id number] for MARIELENA Clemons. letter sent: Normal exam Mammogram BI-RADS: 2 Benign 04/10/2017 - - Read by: Parrish Moore MD Dictated Date/time: 04/10/17 10:20 Electronically Signed by: Parrish Moore MD 04/10/17 10:20 FINAL REPORT MARIELENA Clemons Abd Liver Protocol w/wo IV contrast CT [...] mammogram, 07/13/2016 mammogram and 07/12/2015 mammogram - [facility]. A stereotactic guided biopsy was performed for [...] Imaging. Lidia de la garza rn/:10/11/2016 13:02:45 Passenger Solicitor: Elba LEE)(Elena), Rosario Rodgers This exam was dictated and interpreted by [id number] for Bryon Rodgers. letter sent: Post Bx Results 10/09/2016 - - Read by: Lidia Tapia MD Dictated Date/time: 10/15/16 09:31 Electronically Signed by: Lidia Tapia MD 10/15/16 09:31 FINAL REPORT - - Read by: Lidia Tapia MD Dictated Date/time: 10/11/16 13:02 Electronically Signed by: Lidia Tapia MD 10/11/16 13:02 FINAL REPORT [facility] Liver Protocol w/wo IV contrast CT Abd [...] Chyna Cornejo MD 09/11/16 13:42 FINAL REPORT MARIELENA OPIKenton Nakul Digital Mammo DX Uni MA Digital Mammo DX Uni MA - DIGITAL MAMMO DX UNI MA/L UNILATERAL LEFT DIGITAL DIAGNOSTIC MAMMOGRAM WITH CAD: 09/05/2016 CLINICAL: R92.8 Other Abnormal And Inconclusive Findings On Diagnostic Imaging Of Breast. Current study was evaluated with a Computer Aided Detection (CAD) system. Comparison is made to exams dated: 07/13/2016 mammogram and 07/12/2015 mammogram - [facility]. There are scattered fibroglandular densities in the [...] the patient and her daughter. Ranjeet Cannon M.D. cm/penrad:09/05/2016 15:14:33 Passenger Solicitor: Heaven WHITFIELD(R)(Elena), [facility] This exam was dictated and interpreted by [id number] for MARIELENA Clemons. letter sent: Biopsy Mammogram BI-RADS: 4 Suspicious abnormality 09/05/2016 - - Read by: Parrish Cannon III, MD Dictated Date/time: 09/05/16 15:14 Electronically Signed by: Parrish Cannon III, MD 09/05/16 15:14 FINAL REPORT MARIELENA Clemons Digital Mammo Screening Fam MA Digital Mammo Screening Fam MA - DIGITAL MAMMO SCREENING FAM MA BILATERAL DIGITAL SCREENING MAMMOGRAM WITH CAD: 07/13/2016 CLINICAL: Z12.31 Encounter For Screening Mammogram For Malignant Neoplasm Of Breast. Current study was evaluated with a Computer Aided Detection (CAD) system. Comparison is made to exam dated: 07/12/2015 mammogram - [facility]. There are scattered fibroglandular densities in both [...] are recommended. Ranjeet Cannon M.D. cm/penrad:07/16/2016 10:24:16 Passenger Solicitor: Heaven WHITFIELD(R)(M), [facility] This exam was dictated and interpreted by [id number] for JAYLIN Benitez 15. letter sent: Additional Imaging Mammogram BI-RADS: 0 Indeterminate 07/13/2016 - - Read by: Parrish Moore MD Dictated Date/time: 07/16/16 10:24 Electronically Signed by: Parrish Moore MD 07/16/16 10:24 [facility] Liver w Liver vessels Doppler US Liver [...] MD 03/12/16 10:25 FINAL REPORT [facility] Liver Protocol w/wo IV contrast CT Abd [...] Chyna Cornejo MD 10/31/15 13:56 FINAL REPORT [facility] Liver w Liver [...] Konrad Ruiz MD 07/12/15 16:22 FINAL REPORT KATHARINEKenton [place] Bone Density [employer] MA Bone [...] This exam was dictated and interpreted by [id number] for MARIELENA Rodgers. John Paul farley/elijah:07/12/2015 17:53:49 Passenger Solicitor: Sonia WHITFIELD(R)(M), [facility] 07/12/2015 - - Read by: John Paul Mcallister MD Dictated Date/time: 07/12/15 17:53 Electronically Signed by: John Paul Mcallister MD 07/12/15 17:53 FINAL REPORT MARIELENA Clemons Digital Mammo Screening Fam MA Digital Mammo [...] year screening mammogram is recommended. John Paul Mcallister M.D. srp/penrad:07/12/2015 11:43:50 Passenger Solicitor: Tiffany LEE)(Elena), [facility] This exam was dictated and interpreted by [id number] for MARIELENA Rodgers. letter sent: Normal exam Mammogram BI-RADS: 2 Benign 07/12/2015 - - Read by: John Paul Mcallister MD Dictated Date/time: 07/12/15 11:43 Electronically Signed by: John Paul Mcallister MD 07/12/15 11:43 FINAL REPORT MARIELENA KATHARINEKenton Kaci Abdomen complete US Abdomen complete US EXAM: [...] Konrad Ruiz MD 06/14/15 17:14 FINAL REPORT MARIELENA Clemons Chest 1view Chest 1view EXAM: XR [...] Juani Smith MD 12/06/14 21:58 FINAL REPORT [facility] Chest 1view Chest 1view Chest [...] atelectasis. 12/06/2014 - - Read by: Rosalind Seay MD Dictated Date/time: 12/06/14 15:10 Electronically Signed by: Rosalind Seay MD 12/06/14 15:53 FINAL REPORT [facility] Vital Signs Vital Sign Value Date Comments Source Weight 71.364 02/10/2019 [facility] Height 157.48 cm 02/10/2019 [facility] BMI Calculated 28.78 02/10/2019 [facility] Systolic (mm Hg) 122 02/10/2019 [facility] Diastolic (mm Hg) 79 02/10/2019 [facility] Heart Rate 69 02/10/2019 [facility] Respitory Rate 16 02/10/2019 [facility] Heart Rate 18 02/05/2019 [facility] Respitory Rate 20 02/05/2019 [facility] Systolic (mm Hg) 142 02/05/2019 [facility] Diastolic (mm Hg) 87 02/05/2019 [facility] Heart Rate 60 02/04/2019 [facility] Temperature Oral (F) 98.0 F 02/04/2019 [facility] Respitory Rate 18 02/04/2019 [facility] Systolic (mm Hg) 136 02/04/2019 [facility] Diastolic (mm Hg) 84 02/04/2019 [facility] Temperature Oral (F) 97.4 F 02/04/2019 [facility] Heart Rate 65 02/04/2019 [facility] Respitory Rate 16 02/04/2019 [facility] Systolic (mm Hg) 179 02/04/2019 [facility] Diastolic (mm Hg) 106 02/04/2019 [facility] Respitory Rate 19 09/17/2018 [facility] Temperature Oral (F) 97.8 F 09/17/2018 [facility] Systolic (mm Hg) 134 09/17/2018 [facility] Diastolic (mm Hg) 82 09/17/2018 [facility] Systolic (mm Hg) 154 09/17/2018 [facility] Diastolic (mm Hg) 81 09/17/2018 [facility] Respitory Rate 16 09/17/2018 [facility] Temperature Oral (F) 98 F 09/17/2018 [facility] Height 157.48 cm 09/16/2018 [facility] Weight 63.636 09/16/2018 [facility] BMI Calculated 25.66 09/16/2018 [facility] Respitory Rate 18 09/16/2018 [facility] Temperature Oral (F) 98.4 F 09/16/2018 [facility] Systolic (mm Hg) 160 09/16/2018 [facility] Diastolic (mm Hg) 95 09/16/2018 [facility] Heart Rate 90 09/16/2018 [facility] BMI Calculated 27.31 08/26/2018 [facility] Weight 67.727 08/26/2018 [facility] Temperature Oral (F) 98 F 08/26/2018 [facility] Height 157.48 cm 08/26/2018 [facility] Respitory Rate 18 08/26/2018 [facility] Heart Rate 75 08/26/2018 [facility] Systolic (mm Hg) 147 08/26/2018 [facility] Diastolic (mm Hg) 78 08/26/2018 [facility] Weight 68.636 05/20/2018 [facility] BMI Calculated 27.68 05/20/2018 [facility] Height 157.48 cm 05/20/2018 [facility] Heart Rate 70 05/20/2018 [facility] Systolic (mm Hg) 132 05/20/2018 [facility] Diastolic (mm Hg) 85 05/20/2018 [facility] Temperature Oral (F) 98.2 F 02/28/2018 [facility] Systolic (mm Hg) 107 02/28/2018 [facility] Diastolic (mm Hg) 71 02/28/2018 [facility] Respitory Rate 15 02/28/2018 [facility] Respitory Rate 16 02/28/2018 [facility] Systolic (mm Hg) 103 02/28/2018 [facility] Diastolic (mm Hg) 62 02/28/2018 [facility] Respitory Rate 15 02/28/2018 [facility] Systolic (mm Hg) 112 02/28/2018 [facility] Diastolic (mm Hg) 74 02/28/2018 [facility] Height 170.18 cm 02/27/2018 [facility] Temperature Oral (F) 98 F 02/27/2018 [facility] BMI Calculated 21.97 02/27/2018 [facility] Weight 63.636 02/27/2018 [facility] Heart Rate 94 02/27/2018 [facility] BMI Calculated 26.76 11/18/2017 [facility] Weight 66.364 11/18/2017 [facility] Heart Rate 70 11/18/2017 [facility] Respitory Rate 16 11/18/2017 [facility] Height 157.48 cm 11/18/2017 [facility] Systolic (mm Hg) 131 11/18/2017 [facility] Diastolic (mm Hg) 82 11/18/2017 [facility] Weight 65.909 09/30/2017 [facility] BMI Calculated 26.58 09/30/2017 [facility] Systolic (mm Hg) 144 09/30/2017 [facility] Diastolic (mm Hg) 86 09/30/2017 [facility] Respitory Rate 18 09/30/2017 [facility] Heart Rate 79 09/30/2017 [facility] Temperature Oral (F) 98.4 F 09/30/2017 [facility] Height 157.48 cm 09/30/2017 [facility] Temperature Oral (F) 98.2 F 2017 [facility] Respitory Rate 20 2017 [facility] Heart Rate 63 2017 [facility] Systolic (mm Hg) 129 2017 [facility] Diastolic (mm Hg) 75 2017 [facility] Systolic (mm Hg) 142 2017 [facility] Diastolic (mm Hg) 82 2017 [facility] Respitory Rate 20 2017 [facility] Heart Rate 70 2017 [facility] Temperature Oral (F) 98.7 F 2017 [facility] Height 157.48 cm 2017 [facility] BMI Calculated 25.66 2017 [facility] Weight 63.636 2017 [facility] Heart Rate 74 2017 [facility] Respitory Rate 20 2017 [facility] Temperature Oral (F) 97.9 F 2017 [facility] Systolic (mm Hg) 158 2017 [facility] Diastolic (mm Hg) 99 2017 [facility] Weight 61.818 07/10/2017 [facility] BMI Calculated 24.93 07/10/2017 [facility] Temperature Oral (F) 98.4 F 07/10/2017 [facility] Height 157.48 cm 07/10/2017 [facility] Heart Rate 82 07/10/2017 [facility] Respitory Rate 18 07/10/2017 [facility] Systolic (mm Hg) 154 07/10/2017 [facility] Diastolic (mm Hg) 100 07/10/2017 [facility] Temperature Oral (F) 97.8 F 03/16/2017 [facility] Heart Rate 80 03/16/2017 [facility] Respitory Rate 18 03/16/2017 [facility] Systolic (mm Hg) 150 03/16/2017 [facility] Diastolic (mm Hg) 86 03/16/2017 [facility] BMI Calculated 26.58 03/16/2017 [facility] Height 157.48 cm 03/16/2017 [facility] Weight 65.909 03/16/2017 [facility] Height 157.48 cm 12/17/2016 [facility] BMI Calculated 26.39 12/17/2016 [facility] Weight 65.455 12/17/2016 [facility] Respitory Rate 16 12/17/2016 [facility] Heart Rate 62 12/17/2016 [facility] Systolic (mm Hg) 127 12/17/2016 [facility] Diastolic (mm Hg) 79 12/17/2016 [facility] BMI Calculated 26.92 10/19/2016 [facility] Weight 66.364 10/19/2016 [facility] Height 157 cm 10/19/2016 [facility] Temperature Oral (F) 98.0 F 10/19/2016 [facility] Systolic (mm Hg) 129 10/19/2016 [facility] Diastolic (mm Hg) 79 10/19/2016 [facility] Heart Rate 52 10/19/2016 [facility] Respitory Rate 18 10/19/2016 [facility] Heart Rate 62 08/07/2016 [facility] Systolic (mm Hg) 148 08/07/2016 [facility] Diastolic (mm Hg) 87 08/07/2016 [facility] Height 157.48 cm 08/07/2016 [facility] BMI Calculated 27.31 08/07/2016 [facility] Weight 67.727 08/07/2016 [facility] Weight 71.875 01/31/2016 [facility] BMI Calculated 28.98 01/31/2016 [facility] Heart Rate 80 01/31/2016 [facility] Temperature Oral (F) 97.1 F 01/31/2016 [facility] Height 157.48 cm 01/31/2016 [facility] Systolic (mm Hg) 126 01/31/2016 [facility] Diastolic (mm Hg) 91 01/31/2016 [facility] BMI Calculated 30.64 09/27/2015 [facility] Weight 75.909 09/27/2015 [facility] Height 157.4 cm 09/27/2015 [facility] Heart Rate 72 09/27/2015 [facility] Systolic (mm Hg) 126 09/27/2015 [facility] Diastolic (mm Hg) 77 09/27/2015 [facility] Weight 84.091 06/21/2015 [facility] BMI Calculated 33.91 06/21/2015 [facility] Height 157.48 cm 06/21/2015 [facility] Temperature Oral (F) 98.3 F 06/21/2015 [facility] Heart Rate 83 06/21/2015 [facility] Systolic (mm Hg) 129 06/21/2015 [facility] Diastolic (mm Hg) 85 06/21/2015 [facility] Systolic (mm Hg) 157 12/28/2014 [facility] Diastolic (mm Hg) 87 12/28/2014 [facility] Respitory Rate 15 12/28/2014 [facility] Heart Rate 63 12/28/2014 [facility] Height 157 cm 12/28/2014 [facility] Weight 85.2 12/28/2014 [facility] BMI Calculated 34.57 12/28/2014 [facility] Encounters Location Location Details Encounter Type Encounter Number Reason For Visit Attending Provider ADM Date DC Date Status Source [facility] Outpatient [id number] Remington Pereira 12/28/2014 12/29/2014 [facility] Bedded Outpatient [id number] Haider Michelon 01/05/2015 01/05/2015 [facility] [place] [facility] [id number] Haider Michelon 02/18/2015 02/19/2015 [facility] EDDC Phone Message [id number] 02/23/2015 02/25/2015 [facility] Phone Message [id number] 03/23/2015 03/25/2015 [facility] [place] [facility] [id number] Shawn Bright 06/14/2015 06/15/2015 [facility] Outpatient [id number] Haider Michelon 06/21/2015 06/22/2015 [facility] Bedded Outpatient [id number] Haider Michelon 06/30/2015 06/30/2015 [facility] Outpatient [facility] [place] [facility] [id number] Haider [place] 07/12/2015 07/13/2015 [facility] Outpatient [id number] Haider Michelon 09/27/2015 09/28/2015 [facility] Outpatient [facility] [place] Out[facility] Di[facility] Services [id number] Haider Michelon 10/31/2015 11/01/2015 [facility] EDLA Outpatient [id number] Haider Michelon 01/31/2016 02/01/2016 [facility] Bedded Outpatient [id number] Haider Michelon 02/22/2016 02/22/2016 [facility] Outpatient Imaging [place] Out[facility] Diag Services [id number] Haider Reilly 03/12/2016 03/13/2016 [facility] [place] [facility] Outpatient Imaging - [place] Out[facility] [id number] Deangelo Alloju 07/13/2016 07/14/2016 [facility] [place] [facility] EDLA Outpatient [id number] Remington Pereira 08/07/2016 08/08/2016 [facility] Outpatient [facility] [place] Out[facility] [id number] Deangelo Alloju 09/05/2016 09/06/2016 [facility] [place] [facility] Outpatient Imaging [place] Out[facility] Diag Services [id number] Remington Pereira 09/11/2016 09/12/2016 [facility] [place] [facility] Outpatient Imaging - [place] Outpt Diag Services [id number] Deangelo Alloju 10/09/2016 10/10/2016 OP [facility] Oncology C Rec[place] [id number] Erika Fausto 10/19/2016 11/18/2016 [facility] Outpatient [id number] Choco [place] 12/17/2016 12/18/2016 [facility] Outpatient [facility] - [place] Out[facility] Diag Services [id number] Choco [place] 02/01/2017 02/02/2017 [facility] Bed[facility] Outpatient [id number] Choco [place] 03/05/2017 03/05/2017 [facility] Emergency [id number] Bharat Quinten 03/16/2017 03/16/2017 [facility] Outpatient [id number] Tiki Mejia 06/21/2017 06/22/2017 [facility] Emergency [id number] Galo [place] 07/10/2017 07/10/2017 [facility] Outpatient Imaging [place] Outpt Diag Services [id number] Tkii Mejia 09/10/2017 09/11/2017 [facility] Outpatient Imaging [place] Outpt Diag Services [id number] Choco [place] 2017 09/27/2017 [facility] Emergency [id number] Brendan Gardner 2017 2017 [facility] Emergency [id number] Lev [place] 09/30/2017 10/01/2017 [facility] Outpatient Imaging [place] Outpt Diag Services [id number] Choco [place] 11/14/2017 11/15/2017 [facility] EDLA Outpatient [id number] Choco [place] 11/18/2017 11/19/2017 [facility] Emergency [id number] Magdalene Ragland 02/27/2018 02/28/2018 [facility] EDLA Outpatient [id number] Tiki Mejia 03/27/2018 03/28/2018 [facility] Outpatient Imaging [place] Outpt Diag Services [id number] Choco [place] 05/05/2018 05/06/2018 [facility]LA Outpatient [id number] Choco [place] 05/20/2018 05/21/2018 [facility] Bedded Outpatient [id number] Choco [place] 06/10/2018 06/10/2018 [facility] Emergency [id number] Bharat Shipley 08/26/2018 08/26/2018 [facility] Emergency [id number] Hayley Moore 09/16/2018 09/17/2018 [facility] Emergency [id number] Fallon Sousa 02/04/2019 02/05/2019 [facility] EDLA Outpatient [id number] Tiki Mejia 02/10/2019 02/11/2019 [facility] Outpatient Imaging [place] Outpt Diag Services [id number] Marilin Silverman 02/27/2019 02/28/2019 [facility] [place] Procedures Procedure Code Date Perfomer Comments Source Esophagogastroduodenoscopy [id number] 02/22/2016 [facility] Esophagogastroduodenoscopy [id number] 02/22/2016 [facility] [place] Esophagogastroduodenoscopy [id number] 02/22/2016 [facility] Esophagogastroduodenoscopy [id number] 02/22/2016 [facility] [place] Esophagogastroduodenoscopy [id number] 02/22/2016 [place] Colonoscopy [id number] 06/30/2015 [facility] Colonoscopy [id number] 06/30/2015 [facility] [place] Colonoscopy [id number] 06/30/2015 [facility] Colonoscopy [id number] 06/30/2015 [facility] [place] Colonoscopy [id number] 06/30/2015 OP [place]
--- OUTSIDE RECORDS SUMMARY | 2019-04-14 20:38 | XMS REPORT | Summary of Care ---
Author Author [facility] Organization [facility] Address Unknown Phone Unavailable Encounter HQ Adam(FIN) [id number] Date(s): 08/25/18 - 08/25/18 [facility] [address] [place] [address]- Encounter Diagnosis Myalgia (Final) - 11/02/18 Dehydration (Final) - Essential (primary) hypertension (Final) - Major depressive disorder, single episode, unspecified (Final) - Alcoholic cirrhosis of liver with ascites (Final) - Other long-term (current) drug therapy (Final) - Discharge Disposition: [facility]TC Left B4 Treatment Cmplt-MSE Cmplt Attending Physician: Bharat Shipley MD Vital Signs Most recent to 1 oldest [Reference Range]: Height 157.48 cm (08/25/18 7:25 PM) Temperature Oral 98 DegF [96.4-99.1 DegF] (08/25/18 7:25 PM) Blood Pressure 147/78 mmHg [90-140/60-90 mmHg] *HI* (08/25/18 7:25 PM) Respiratory Rate 18 BRMIN [14-20 BRMIN] (08/25/18 7:25 PM) Peripheral Pulse 75 bpm Rate [60-100 bpm] (08/25/18 7:25 PM) Weight 67.727 kg (08/25/18 7:25 PM) Body Mass Index 27.31 m2 (08/25/18 7:25 PM) Problem List Condition Effective Dates Status [...]
--- OUTSIDE RECORDS SUMMARY | 2019-04-14 20:38 | XMS REPORT | Summary of Care ---
Author Author [facility] Organization [facility] Address Unknown Phone Unavailable Encounter HQ Adam(FIN) [id number] Date(s): 09/16/18 - 09/16/18 [facility] [address] [place] [address]- [phone] Encounter Diagnosis NG (headache) (Discharge Diagnosis) - 09/16/18 Benign hypertension (Discharge Diagnosis) - 09/16/18 Essential (primary) hypertension (Final) - 09/22/18 Major depressive disorder, single episode, unspecified (Final) - Thrombocytopenia, unspecified (Final) - Discharge Disposition: Home or Self Care Attending Physician: Hayley Moore MD Vital Signs 1 2 3 Most recent to oldest [Reference Range]: 157.48 cm (09/16/18 4:25 PM) Height 97.8 DegF (09/16/18 8:59 PM) 98 DegF (09/16/18 7:23 PM) 98.4 DegF (09/16/18 4:25 PM) Temperature Oral [96.4-99.1 DegF] 134/82 mmHg (09/16/18 8:59 PM) 160/95 mmHg *HI* (09/16/18 4:25 PM) Blood Pressure [90-140/60-90 mmHg] 154 mmHg *HI* (09/16/18 7:23 PM) Systolic Blood Pressure [90-140 mmHg] 81 mmHg (09/16/18 7:23 PM) Diastolic Blood Pressure [60-90 mmHg] 19 BRMIN (09/16/18 8:59 PM) 16 BRMIN (09/16/18 7:23 PM) 18 BRMIN (09/16/18 4:25 PM) Respiratory Rate [14-20 BRMIN] 90 bpm (09/16/18 4:25 PM) Peripheral Pulse Rate [60-100 bpm] 63.636 kg (09/16/18 4:25 PM) Weight 25.66 m2 (09/16/18 4:25 PM) Body Mass Index Problem List Condition [...] No data available for this section Results Most recent to 1 oldest [Reference Range]: Neutrophils # 2.4 K/CMM [1.5-8.1 K/CMM] (09/16/18 4:38 PM) Lymphocytes # 0.6 K/CMM [1.0-5.5 K/CMM] *LOW* (09/16/18 4:38 PM) Monocytes # [0.0-0.8 0.2 K/CMM K/CMM] (09/16/18 4:38 PM) BNP [<=100 pg/mL] 22 pg/mL (09/16/18 4:38 PM) eGFR 104 mL/min/1.73m2 1 *NA* (09/16/18 4:38 PM) A/G Ratio [0.7-1.6] 0.8 (09/16/18 4:38 PM) Albumin Lvl [3.5-5.0 3.7 g/dL g/dL] (09/16/18 4:38 PM) Alk Phos [39-136 232 unit/L unit/L] *HI* (09/16/18 4:38 PM) ALT [0-65 unit/L] 43 unit/L (09/16/18 4:38 PM) AGAP [10.0-20.0 15.5 mEq/L mEq/L] (09/16/18 4:38 PM) AST [0-37 unit/L] 40 unit/L *HI* (09/16/18 4:38 PM) B/C Ratio [6-25] 15 (09/16/18 4:38 PM) Basophils [0.0-1.0 0.4 % %] (09/16/18 4:38 PM) BUN [7-22 mg/dL] 9 mg/dL (09/16/18 4:38 PM) Calcium Lvl 8.8 mg/dL [8.5-10.5 mg/dL] (09/16/18 4:38 PM) Total CK [12-191 118 unit/L unit/L] (09/16/18 4:38 PM) Chloride Lvl [95-109 104 mEq/L mEq/L] (09/16/18 4:38 PM) CO2 [24-32 mEq/L] 23 mEq/L *LOW* (09/16/18 4:38 PM) Creatinine Lvl 0.59 mg/dL [0.50-1.40 mg/dL] (09/16/18 4:38 PM) Eosinophils [0.0-4.0 0.8 % %] (09/16/18 4:38 PM) Globulin [2.7-4.2 4.5 g/dL g/dL] *HI* (09/16/18 4:38 PM) Glucose Lvl [70-99 125 mg/dL mg/dL] *HI* (09/16/18 4:38 PM) Hct [36.0-48.0 %] 39.5 % (09/16/18 4:38 PM) Hgb [12.0-16.0 g/dL] 13.5 g/dL (09/16/18 4:38 PM) Potassium Lvl 3.5 mEq/L [3.5-5.1 mEq/L] (09/16/18 4:38 PM) Lymphocytes 17.3 % [20.0-40.0 %] *LOW* (09/16/18 4:38 PM) MCH [27.0-31.0 pg] 27.8 pg (09/16/18 4:38 PM) MCHC [32.0-36.0 34.2 g/dL g/dL] (09/16/18 4:38 PM) MCV [80.0-98.0 fL] 81.2 fL (09/16/18 4:38 PM) Magnesium Lvl 1.9 mg/dL [1.8-2.4 mg/dL] (09/16/18 4:38 PM) Monocytes [2.0-12.0 7.4 % %] (09/16/18 4:38 PM) MPV [7.4-10.4 fL] 8.2 fL (09/16/18 4:38 PM) Sodium Lvl [135-145 139 mEq/L mEq/L] (09/16/18 4:38 PM) Platelet [133-450 69 K/CMM K/CMM] *LOW* (09/16/18 4:38 PM) Segs [45.0-75.0 %] 74.1 % (09/16/18 4:38 PM) Total Protein 8.2 g/dL [6.4-8.4 g/dL] (09/16/18 4:38 PM) RBC [4.20-5.40 4.87 M/CMM M/CMM] (09/16/18 4:38 PM) RDW [11.5-14.5 %] 14.7 % *HI* (09/16/18 4:38 PM) Bili Total [0.2-1.3 0.8 mg/dL mg/dL] (09/16/18 4:38 PM) Troponin-I <0.02 ng/mL [0.00-0.40 ng/mL] (09/16/18 4:38 PM) UA Bili [Negative] Negative *NA* (09/16/18 8:08 PM) UA Blood [Negative] Negative (09/16/18 8:08 PM) UA Color Ltyellow *NA* (09/16/18 8:08 PM) UA Glucose [Negative Negative mg/dL mg/dL] *NA* (09/16/18 8:08 PM) UA Ketones [Negative Negative mg/dL mg/dL] *NA* (09/16/18 8:08 PM) UA Leuk Est Small [Negative] *ABN* (09/16/18 8:08 PM) UA Nitrite Negative [Negative] (09/16/18 8:08 PM) UA pH [5.0-8.0] 7.0 (09/16/18 8:08 PM) UA Protein [Negative Negative mg/dL mg/dL] (09/16/18 8:08 PM) UA RBC [0-2 /HPF] 1 /HPF (09/16/18 8:08 PM) UA Spec Grav 1.005 [<=1.030] (09/16/18 8:08 PM) UA Sq Epi [Few /LPF] Occasional /LPF *NA* (09/16/18 8:08 PM) UA Turbidity [Clear] Clear (09/16/18 8:08 PM) UA Urobilinogen <=1.0 mg/dL [0.1-1.0 mg/dL] *NA* (09/16/18 8:08 PM) UA WBC [0-5 /HPF] 1 /HPF (09/16/18 8:08 PM) WBC [3.7-10.4 K/CMM] 3.2 K/CMM *LOW* (09/16/18 4:38 PM) 1Result Comment: The eGFR is calculated [...] be mul tiplied by the estimated BMI. Immunizations Given and Recorded Vaccine Date Status [...]
== END 2019-04-14 21:38 | disposition home or self-care (01) ==
LOC: FSED 20:34
DX: R07.89 Other chest pain (principal); I10 Essential (primary) hypertension
CPT/HCPCS: 80053; 84484; 85025; 93005; 99283

== ENCOUNTER 2019-06-03 21:45 | Emergency (ER) | payer MEDICARE, OTHER ==
[~2019-06-03] VITALS: Ht 157.5 cm; Wt 72.6 kg
--- OUTSIDE RECORDS SUMMARY | 2019-06-03 21:48 | XMS REPORT ---
Author [facility] Address Unknown Phone Unavailable Care Team Providers Care Timber Estimator Name Role Phone Maria Teresa HUDSON Unavailable Unavailable ALLOJU, ROHAN Unavailable Unavailable Payers Payer Name Policy Type Policy Number Effective Date Expiration Date Problems This patient has no known problems. Allergies, Adverse Reactions, Alerts Allergy Name Allergy Type Status Severity Reaction(s) Onset Date Inactive Date Treating Clinician Comments morphine DA Active MO 2018-05-29 00:00:00 aspirin DA Active SV 2018-05-29 00:00:00 Medications This patient has no known medications. Results Test Description Test Time Test Comments Text Results Atomic Results Result Comments TROPONIN-I 2019-05-06 22:45:00 TROPONIN-I (test code=TROPI) <0.015 ng/mL 0.00-0.056 - XR CHEST 1 [id number] 19:50:00 Name: FEDE NEVES [facility] : 1960 Age/S:58 /F [address] [facility] Unit#:[id number] Loc: [place] [address] Phys: Dave Miguel MD Dis Date: PHONE #: [phone] Status: REG ER FAX #: [phone] Exam Date: 05/06/2019 Reason: CHEST PAIN EXAMS: CPT CODE: [id number] XR CHEST 1 V [id number] REASON FOR EXAM: CHEST PAIN EXAM ORDER DATE: 05/06/2019 7:14 PM Ordering Lorna: Dave Miguel MD PROCEDURE: - XR CHEST 1 V COMPARISON: 03/16/2019 FINDINGS: Portable AP frontal view of the chest obtained at 7:36 PM shows clear lungs without evidence of consolidation. There is no evidence of effusion. The heart size is within normal limits. Pulmonary vasculatures are unremarkable. IMPRESSION: No active disease. at 1950 Reported and signed by: Arthur Solano M.D. CC: Dave Miguel MD Technologist: DONATO CHI RT(R),CT Trnscrpt Data: 05/06/2019 (1949) t.[email or web address] Orig Print D/T: S: 05/06/2019 (1952) PAGE 1 Signed Report PROTHROMBIN [id number] 19:45:00* Test Item Value Reference Range Comments PROTHROMBIN TIME PATIENT (test code=PTP) 11.1 seconds 9.0-13.0 INTERNATIONAL NORMAL RATIO (test code=INR) 1.1 0.8-1.2 The therapeutic range for oral anticoagulant therapy formost indications is an international normalized ratio (INR)of between 2.0 and 3.0. The recommended therapeutic INRrange for various clinical situations is listed below: Clinical Situation INR range Pulmonary e mbolism treatment (2.0-3.0)Venous thrombosis treatmentVenous thrombosis prophylaxis (high risk surgery)Prevention of systemic embolism from: Acute myocardial infarction Valvular heart disease Atrial fibrillation Mechanical prosthetic heart valves (2.5-3.5) IS PATIENT ON ANTICOAGULANTS? NTHROMBOPLASTIN TIME [id number] 19:45:00* Test Item Value Reference Range Comments THROMBOPLASTIN TIME PARTIAL (test code=PTT) 25.7 seconds 25.5-34.3 Therapeutic Range for patients on Heparin Therapy is 2 to2.5 times their baseline PTT level. IS PATIENT ON ANTICOAGULANTS? NBASIC METABOLIC [id number] 19:43:00* Test Item Value Reference Range Comments SODIUM (test code=NA) 140 mmol/L 135-148 POTASSIUM (test code=K) 3.8 mmol/L 3.5-5.1 CHLORIDE (test code=CL) 103 mmol/L 101-109 CARBON DIOXIDE (test code=CO2) 26.7 mmol/L 21-32 ANION GAP (test code=GAP) 14 mmol/L 10-20 GLUCOSE (test code=GLU) 114 mg/dL 74-106 BLOOD UREA NITROGEN (test code=BUN) 16 mg/dL 3-21 GLOMERULAR FILTRATION RATE (test code=GFR) > 60 mL/min >=60 Estimated GFR by using Modified MDRD formula.Chronic kidney disease is defined as either kidney damageor GFR <60 mL/min/1.73 m2 for >3 months. CREATININE (test code=CREAT) 0.76 mg/dL 0.55-1.3 BUN/CREATININE RATIO (test code=BUN/CREA) 21.1 10-20 CALCIUM (test code=CA) 8.6 mg/dL 8.4-10.2 HEPATIC FUNCTION [id number] 19:43:00* Test Item Value Reference Range Comments TOTAL PROTEIN (test code=PROT) 7.9 g/dL 6.5-8.4 ALBUMIN (test code=ALB) 3.8 g/dL 3.4-4.8 GLOBULIN (test code=GLOB) 4.1 G/DL 1-10 ALBUMIN/GLOBULIN RATIO (test code=A/G) 0.9 RATIO 0.75-1.50 BILIRUBIN TOTAL (test code=BILT) 0.70 mg/dL 0.0-1.0 BILIRUBIN DIRECT (test code=BILD) 0.20 mg/dL 0.0-0.30 SGOT/AST (test code=AST) 31 U/L 6-32 SGPT/ALT (test code=ALT) 37 U/L 12-78 Note: Change in REFERENCE RANGE due to new reagent method. ALKALINE PHOSPHATASE TOTAL (test code=ALKP) 243 U/L 38-126 [id number] 19:43:00* Test Item Value Reference Range Comments TROPONIN-I (test code=TROPI) <0.015 ng/mL 0.00-0.056 DRUGS OF ABUSE SCREEN [id number] 19:38:00* Test Item Value Reference Range Comments URN COCAINE (test code=COCAURN) NEGATIVE NEGATIVE URN CANNABINOIDS (test code=CANNABURN) NEGATIVE NEGATIVE URN AMPHETAMINE (test code=AMPHETURN) NEGATIVE NEGATIVE URN BARBITURATE (test code=BARBITURN) NEGATIVE NEGATIVE URN BENZODIAZEPINE (test code=BENZOURN) POSITIVE NEGATIVE URN OPIATES (test code=OPIATURN) NEGATIVE NEGATIVE URN PHENCYCLIDINE (PCP) (test code=PHENCURN) NEGATIVE NEGATIVE BASIC METABOLIC [id number] 19:33:00* Test Item Value Reference Range Comments SODIUM (test code=NA) 140 mmol/L 135-148 POTASSIUM (test code=K) 3.8 mmol/L 3.5-5.1 CHLORIDE (test code=CL) 103 mmol/L 101-109 CARBON DIOXIDE (test code=CO2) 26.7 mmol/L 21-32 ANION GAP (test code=GAP) 14 mmol/L 10-20 GLUCOSE (test code=GLU) 114 mg/dL 74-106 BLOOD UREA NITROGEN (test code=BUN) 16 mg/dL 3-21 GLOMERULAR FILTRATION RATE (test code=GFR) > 60 mL/min >=60 Estimated GFR by using Modified MDRD formula.Chronic kidney disease is defined as either kidney damageor GFR <60 mL/min/1.73 m2 for >3 months. CREATININE (test code=CREAT) 0.76 mg/dL 0.55-1.3 BUN/CREATININE RATIO (test code=BUN/CREA) 21.1 10-20 CALCIUM (test code=CA) 8.6 mg/dL 8.4-10.2 HEPATIC FUNCTION [id number] 19:33:00* Test Item Value Reference Range Comments TOTAL PROTEIN (test code=PROT) gram/dL 6.4-8.2 ALBUMIN (test code=ALB) g/dL 3.4-5.0 GLOBULIN (test code=GLOB) g/dL 2.7-4.2 ALBUMIN/GLOBULIN RATIO (test code=A/G) 0.75-1.50 BILIRUBIN TOTAL (test code=BILT) mg/dL 0.2-1.2 BILIRUBIN DIRECT (test code=BILD) mg/dL 0.0-0.20 SGOT/AST (test code=AST) IUnit/L 15-37 SGPT/ALT (test code=ALT) U/L 10-69 ALKALINE PHOSPHATASE TOTAL (test code=ALKP) IUnit/L 45-117 [id number] 19:33:00* Test Item Value Reference Range Comments TROPONIN-I (test code=TROPI) ng/mL 0-0.045 CBC W/O [id number] 19:28:00* Test Item Value Reference Range Comments WHITE BLOOD CELL (test code=WBC) 3.2 K/mm3 4.5-12.5 RED BLOOD CELL (test code=RBC) 4.69 mill/mm3 3.7-5.2 HEMOGLOBIN (test code=HGB) 13.2 gram/dL 11.5-15.5 HEMATOCRIT (test code=HCT) 38.6 % 36.0-46.0 MEAN CELL VOLUME (test code=MCV) 82.3 fL 80-98 MEAN CELL HGB (test code=MCH) 28.1 picogram 27.0-33.0 MEAN CELL HGB CONCETRATION (test code=MCHC) 34.2 gram/dL 33.0-36.0 RED CELL DISTRIBUTION WIDTH (test code=RDW) 14.1 % 11.6-16.2 RED CELL DISTRIBUTION WIDTH SD (test code=RDW-SD) 43.2 fL 37.0-51.0 PLATELET COUNT (test code=PLT) 71 K/mm3 150-450 MEAN PLATELET VOLUME (test code=MPV) 9.5 fL 6.7-11.0 BASIC METABOLIC [id number] 14:44:00* Test Item Value Reference Range Comments SODIUM (test code=NA) 137 mmol/L 136-145 POTASSIUM (test code=K) 3.7 mmol/L 3.5-5.1 CHLORIDE (test code=CL) 104.0 mmol/L 98-107 CARBON DIOXIDE (test code=CO2) 28.0 mmol/L 21-32 ANION GAP (test code=GAP) 8.7 10-20 GLUCOSE (test code=GLU) 118 mg/dL 74-106 BLOOD UREA NITROGEN (test code=BUN) 15 mg/dL 7-18 GLOMERULAR FILTRATION RATE (test code=GFR) > 60 mL/min >=60 Estimated GFR by using Modified MDRD formula.Chronic kidney disease is defined as either kidney damageor GFR <60 mL/min/1.73 m2 for >3 months. CREATININE (test code=CREAT) 0.70 mg/dL 0.55-1.02 Note change in reference range due to change in reagent. BUN/CREATININE RATIO (test code=BUN/CREA) 21.4 10-20 CALCIUM (test code=CA) 8.9 mg/dL 8.5-10.1 [id number] 14:44:00* Test Item Value Reference Range Comments TROPONIN-I (test code=TROPI) <0.015 ng/mL 0-0.045 BASIC METABOLIC [id number] 14:40:00* Test Item Value Reference Range Comments SODIUM (test code=NA) 137 mmol/L 136-145 POTASSIUM (test code=K) 3.7 mmol/L 3.5-5.1 CHLORIDE (test code=CL) 104.0 mmol/L 98-107 CARBON DIOXIDE (test code=CO2) mmol/L 21-32 ANION GAP (test code=GAP) 10-20 GLUCOSE (test code=GLU) mg/dL 74-106 BLOOD UREA NITROGEN (test code=BUN) mg/dL 7-18 GLOMERULAR FILTRATION RATE (test code=GFR) mL/min >=60 CREATININE (test code=CREAT) mg/dL 0.55-1.02 BUN/CREATININE RATIO (test code=BUN/CREA) 10-20 CALCIUM (test code=CA) mg/dL 8.5-10.1 [id number] 14:40:00* Test Item Value Reference Range Comments TROPONIN-I (test code=TROPI) ng/mL 0-0.045 - XR CHEST 1 [id number] 14:22:00 FAX: Matthew Mcallister MD [phone] [place]: [address] St: REG Name: FEDE FISHER [facility] : [birth year] Age/S: 58/F [address] Unit #: [id number] Loc: [place] [address] Phys: Matthew Mcallister MD Acct: [id number] Dis Date: Status: REG ER PHONE #: [phone] Exam Date: 03/16/2019 1416 FAX #: [phone] Reason: CHEST PAIN EXAMS: CPT CODE: [id number] XR CHEST 1 V [id number] REASON FOR EXAM: CHEST PAIN EXAM ORDER DATE: 03/16/2019 2:04 PM Ordering M.Nicole: Matthew Mcallister MD PROCEDURE: - XR CHEST 1 V COMPARI SON: 03/15/2019 FINDINGS: Portable AP frontal view of the chest ob tained at 2:16 PM shows clear lungs without evidence of consolidation. The re is no evidence of effusion. The heart size is minimally enlarged. Pulmo nary vasculatures are unremarkable. IMPRESSION: No active disease. at 1422 Reported and signed by: Arthur Solano M.D. CC: Matthew Mcallister MD Technologist: Hillary Chowdhury RT(R); STUDENT TECHNOLOGIST Trnscrd Date/Time/By: ([id number]) : By: ShelbiL Orig Print D/T: S: 03/16/2019 (1469) PAGE 1 Signed Report CBC W/O [id number] 14:20:00* Test Item Value Reference Range Comments WHITE BLOOD CELL (test code=WBC) 3.9 K/mm3 4.5-12.5 RED BLOOD CELL (test code=RBC) 5.11 mill/mm3 3.7-5.2 HEMOGLOBIN (test code=HGB) 14.2 gram/dL 11.5-15.5 HEMATOCRIT (test code=HCT) 42.6 % 36.0-46.0 MEAN CELL VOLUME (test code=MCV) 83.4 fL 80-98 MEAN CELL HGB (test code=MCH) 27.8 picogram 27.0-33.0 MEAN CELL HGB CONCETRATION (test code=MCHC) 33.3 gram/dL 33.0-36.0 RED CELL DISTRIBUTION WIDTH (test code=RDW) 14.9 % 11.6-16.2 PLATELET COUNT (test code=PLT) 88 K/mm3 150-450 MEAN PLATELET VOLUME (test code=MPV) 9.8 fL 6.7-11.0 CBC W/O [id number] 14:19:00* Test Item Value Reference Range Comments WHITE BLOOD CELL (test code=WBC) K/mm3 4.5-12.5 RED BLOOD CELL (test code=RBC) mill/mm3 3.7-5.2 HEMOGLOBIN (test code=HGB) 14.2 gram/dL 11.5-15.5 HEMATOCRIT (test code=HCT) 42.6 % 36.0-46.0 MEAN CELL VOLUME (test code=MCV) fL 80-98 MEAN CELL HGB (test code=MCH) picogram 27.0-33.0 MEAN CELL HGB CONCETRATION (test code=MCHC) gram/dL 33.0-36.0 RED CELL DISTRIBUTION WIDTH (test code=RDW) % 11.6-16.2 PLATELET COUNT (test code=PLT) K/mm3 150-450 MEAN PLATELET VOLUME (test code=MPV) fL 6.7-11.0 - XR CHEST 2 [id number] 18:51:00 FAX: Raul Jackson [phone] [place]: B St: REG Name: FEDE FISHER [facility] : [birth year] Age/S: 58/F [address] Unit #: [id number] Loc: [place] [address] Phys: Raul Dc MD Acct: [id number] Dis Date: Status: REG ER PHONE #: [phone] Exam Date: 03/15/20191849 FAX #: [phone] Reason: chest discomfort EXAMS: CPT CODE: [id number] XR CHEST 2 V [id number] REASON FOR EXAM: chest dis comfort Exam Order Date: 03/15/2019 5:52 PM Ordering M.Nicole: Raul Dc MD PROCEDURE: - XR CHEST 2 V COMPARISON: FINDINGS: PA and lateral views of the chest show c lear lungs without evidence of consolidation. No evidence of effusion. The heart size is within normal limits. Pulmonary vasculatures are unremarkab le. The osseous structures are grossly intact. IMPRESSION: No active disease. Electronically Signed by Lorna Solano on 019 at 1851 Reported and signed by: Arthur Solano M.D. CC: Raul cD MD Tech nologist: ANALISA CABRERA RT(R) Trnscrd Date/Ti me/By: 03/15/2019 (1850) : By: SantanaVTL Orig Print D/T: S: 03/15/2019 (1854) PAGE 1 Signed Report BASIC METABOLIC [id number] 18:26:00* Test Item Value Reference Range Comments SODIUM (test code=NA) 136 mmol/L 136-145 POTASSIUM (test code=K) 3.5 mmol/L 3.5-5.1 CHLORIDE (test code=CL) 100.0 mmol/L 98-107 CARBON DIOXIDE (test code=CO2) 27.0 mmol/L 21-32 ANION GAP (test code=GAP) 12.5 10-20 GLUCOSE (test code=GLU) 100 mg/dL 74-106 BLOOD UREA NITROGEN (test code=BUN) 12 mg/dL 7-18 GLOMERULAR FILTRATION RATE (test code=GFR) > 60 mL/min >=60 Estimated GFR by using Modified MDRD formula.Chronic kidney disease is defined as either kidney damageor GFR <60 mL/min/1.73 m2 for >3 months. CREATININE (test code=CREAT) 0.60 mg/dL 0.55-1.02 Note change in reference range due to change in reagent. BUN/CREATININE RATIO (test code=BUN/CREA) 20.0 10-20 CALCIUM (test code=CA) 9.0 mg/dL 8.5-10.1 [id number] 18:26:00* Test Item Value Reference Range Comments MAGNESIUM (test code=MAG) 1.7 mg/dL 1.8-2.4 [id number] 18:26:00* Test Item Value Reference Range Comments TROPONIN-I (test code=TROPI) <0.015 ng/mL 0-0.045 BASIC METABOLIC [id number] 18:14:00* Test Item Value Reference Range Comments SODIUM (test code=NA) 136 mmol/L 136-145 POTASSIUM (test code=K) 3.5 mmol/L 3.5-5.1 CHLORIDE (test code=CL) 100.0 mmol/L 98-107 CARBON DIOXIDE (test code=CO2) mmol/L 21-32 ANION GAP (test code=GAP) 10-20 GLUCOSE (test code=GLU) mg/dL 74-106 BLOOD UREA NITROGEN (test code=BUN) mg/dL 7-18 GLOMERULAR FILTRATION RATE (test code=GFR) mL/min >=60 CREATININE (test code=CREAT) mg/dL 0.55-1.02 BUN/CREATININE RATIO (test code=BUN/CREA) 10-20 CALCIUM (test code=CA) mg/dL 8.5-10.1 [id number] 18:14:00* Test Item Value Reference Range Comments MAGNESIUM (test code=MAG) mg/dL 1.8-2.4 [id number] 18:14:00* Test Item Value Reference Range Comments TROPONIN-I (test code=TROPI) ng/mL 0-0.045 CBC W/O [id number] 17:49:00* Test Item Value Reference Range Comments WHITE BLOOD CELL (test code=WBC) 3.6 K/mm3 4.5-12.5 RED BLOOD CELL (test code=RBC) 5.18 mill/mm3 3.7-5.2 HEMOGLOBIN (test code=HGB) 13.9 gram/dL 11.5-15.5 HEMATOCRIT (test code=HCT) 44.3 % 36.0-46.0 MEAN CELL VOLUME (test code=MCV) 85.5 fL 80-98 MEAN CELL HGB (test code=MCH) 26.8 picogram 27.0-33.0 MEAN CELL HGB CONCETRATION (test code=MCHC) 31.4 gram/dL 33.0-36.0 RED CELL DISTRIBUTION WIDTH (test code=RDW) 14.9 % 11.6-16.2 PLATELET COUNT (test code=PLT) 81 K/mm3 150-450 RESULT VERIFIED BY REPEAT ANALYSIS MEAN PLATELET VOLUME (test code=MPV) 9.4 fL 6.7-11.0 CBC W/O [id number] 17:41:00* Test Item Value Reference Range Comments WHITE BLOOD CELL (test code=WBC) K/mm3 4.5-12.5 RED BLOOD CELL (test code=RBC) mill/mm3 3.7-5.2 HEMOGLOBIN (test code=HGB) 13.9 gram/dL 11.5-15.5 HEMATOCRIT (test code=HCT) 44.3 % 36.0-46.0 MEAN CELL VOLUME (test code=MCV) fL 80-98 MEAN CELL HGB (test code=MCH) picogram 27.0-33.0 MEAN CELL HGB CONCETRATION (test code=MCHC) gram/dL 33.0-36.0 RED CELL DISTRIBUTION WIDTH (test code=RDW) % 11.6-16.2 PLATELET COUNT (test code=PLT) K/mm3 150-450 MEAN PLATELET VOLUME (test code=MPV) fL 6.7-11.0 SCR MAMM BILATERAL OFELIA CAD [id number] 10:51:45 - SCR MAMM BILATERAL OFELIA CAD DIGITALBILATERAL DIGITAL SCREENING MAMMOGRAM 3D/2D WITH CAD: 10/11/2018CLINICAL: Asymptomatic. Digital breast tomosynthesis was performed in addition to routine CC and MLO views. Current mammographic images were evaluated by either a Quemulus M-Vu or a RTF Logic ImageChecker CAD (computer aided detection system). Comparison is made to exams dated 04/10/2017 mammogram, 10/09/2016 mammogram, 09/05/2016 mammogram, 07/13/2016 mammogram, and 07/12/2015 ma mmogram - [facility]. There are scattered fibroglandular tissues in both breasts. No suspicious mass, architectural distortion, malignant type calc ification, or lymph node abnormality detected. Breast architecture is stable co mpared to prior exams.IMPRESSION: NEGATIVEThere is no mammographic evidence of m alignancy. Resume annual screening mammography in one year. Dickson rice/penrad:10/21/2018 10:51:45 Modeling And Simulation Analyst: Pamela JONAS, [facility]-FWletter sent: BIRADS 1-2 Normal Mammogram BI-RADS: 1 Nega tiveCT ABDOMEN/PELVIS [place] [address] Patient Name: FEDE NEVES MR #: [id number] : 1960 Age/Sex: 56/F Req #: [id number] Adm Physician: Ordered by: SILVANA HUDSON MD Report #: [id number] Location: ER Room/Bed: Procedure: [id number] CT/CT ABDOMEN/PELVIS DARINEL Andersonmaria teresa eliazar Date: 09/24/17 Exam Time: 2324 REPORT STATUS: Signed EXAM: CT ABDOMEN AND PELVIS without IV CONTRAST DATE: 09/24/2017 11 :07 PM Time stamp on Exam: 2328 hours INDICATION: Left flank pain COMPARIS ON: CT of the abdomen and pelvis with IV contrast May 30, 2014 TECHNIQUE: Th e abdomen and pelvis were scanned using a multidetector helical scanner. Coron al and sagittal reformations were obtained. Renal stone protocol performed. IV Contrast: None Oral Contrast: None CTDIvol has been reviewed. It is below the limits set by the Radiation Protocol Committee (RPC). FINDINGS: LO WER THORAX: No consolidations LIVER: Hepatomegaly and cirrhotic liver morph ology. BILIARY: Calcified gallstone in a nondistended gallbladder. No ductal d ilation. SPLEEN: Marked splenomegaly with the spleen measuring 18 cm in AP diameter. PANCREAS: No masses ADRENALS: No nodules RIGHT KIDNEY: No nephroureterolithiasis or hydronephrosis. LEFT KIDNEY: No nephroureterolith iasis or hydronephrosis. GI TRACT: No distention, wall thickening or eviden ce of obstruction. Small sliding-type hiatal hernia. Normal appendix. VES SELS: Mild atherosclerotic changes. PERITONEUM/RETROPERITONEUM: No free air or fluid LYMPH NODES: No lymphadenopathy REPRODUCTIVE ORGANS: Unremarkable BLADDER: Unremarkable SOFT TISSUES: Small fat-containing left inguinal he rnia. BONES: No suspicious bone lesions. IMPRESSION: No nephroureteroli thiasis or hydronephrosis. Cirrhosis with splenomegaly. Cholelithiasis without evidence of cholecystitis. Signed by: Dr. Le Childress M.D. on 09/25/2017 12:01 AM Dictated By: LE CHILDRESS MD Electronically Sign ed By: LE CHILDRESS MD on 09/25/17 0001 Transcribed By: LUISA on 09/25/17 00 01 COPY TO: SILVANA HUDSON MD US GALLBLADDER [place] [address] Patient Name: FEDE NEVES MR #: [id number] : 1960 Age/Sex: 56/F Req #: [id number] Adm Physician: Ordered by: ROHAN GONZALEZ MD Report #: [id number] Location: US Room/Bed: Procedure: [id number] US/US GALLBLADDER Exam Benito e: Exam Time: REPORT STATUS: Signed PROCED URE: US GALLBLADDER COMPARISON: Gallbladder ultrasound 05/30/2014. INDICA TIONS: Dyspepsia TECHNIQUE: Chase-scale and color doppler transverse and long itudinal images of the right upper quadrant of the abdomen were obtained. FINDINGS: Liver: 18.4 cm in right mid-clavicular line. Coarsened par enchymal echogenicity with nodular external contour. No masses. Main portal vein: 1.6 cm in caliber. Hepatopedal flow. Gallbladder: Echogenic foci pr otruding from the gallbladder wall into the lumen measuring up to 0.7 cm in c aliber, without shadowing. No calculus, sludge, wall thickening, or perichole cystic fluid. Common Bile Duct: 0.5 cm Sonographic Spencer's sign: Reported a s negative. Right kidney: 10 cm. Normal renal cortical echogenicity. No so lid masses or hydronephrosis. Pancreas: The visualized portions are unr emarkable. Inferior vena cava: Patent Aorta: Non-aneurysmal Ascites: N one in the right upper quadrant of the abdomen. CONCLUSION: Cirrhosis with enlargement of the main portal vein suggestive of portal hypertension. No focal hepatic mass. Gallbladder polyps measuring up to 0.7 cm. Followup right upper quadrant ultrasound in 6-12 months is suggested to document stab ility. Dictated by: Tiffany Ybarra M.D. on 09/09/2017 at 9:25 Electr onically approved by: Tiffany Ybarra M.D. on 09/09/2017 at 9:25 Dic tated By: TIFFANY YBARRA MD 4 COPY TO: ROHAN GONZALEZ MD
--- NOTE | 2019-06-03 22:36 | NUR ---
PT HERE BY SELF, DOES NOT HAVE RIDE HOME AT THIS TIME, VALIUM HELD. PT AWAKE ALERT SKIN W/D RESP NONLAB, NAD NOTED. APPEARS CALM SITTING IN LOBBY. PT TO CALL SOMEONE TO TAKE HER HOME.
[2019-06-03] MEDS: DIAZEPAM 5 MG TAB PO PRN (22:42)
--- NOTE | 2019-06-03 22:42 | NUR ---
SPOKE WITH JOSEPH EN ROUTE. MEDICATED PER ORDERS. PT REQUESTING RX, WILL NOTIFY
--- NOTE | 2019-06-03 22:49 | NUR ---
MD SPOKE WITH PT, ADVISED WILL NEED TO F/U WITH PCP FOR FURTHER
== END 2019-06-03 23:21 | disposition home or self-care (01) ==
LOC: ER 21:45
DX: Z76.0 Encounter for issue of repeat prescription (principal); F41.9 Anxiety disorder, unspecified; F17.210 Nicotine dependence, cigarettes, uncomplicated
CPT/HCPCS: 99283

== ENCOUNTER 2019-06-04 12:06 | Emergency (ER) | payer MEDICARE, OTHER ==
[~2019-06-04] VITALS: Ht 157.5 cm; Wt 71.2 kg
[2019-06-04 13:29] VITALS: BP 196/100
== END 2019-06-04 13:21 | disposition home or self-care (01) ==
LOC: FSED 12:06
DX: Z76.0 Encounter for issue of repeat prescription (principal); F41.9 Anxiety disorder, unspecified
CPT/HCPCS: 99282

== ENCOUNTER 2020-11-15 08:58 | Emergency (ER) | payer MEDICARE, OTHER ==
[~2020-11-15] VITALS: Ht 157.5 cm; Wt 95.0 kg
[2020-11-15] MEDS ORDERED: CEFTRIAXONE SOD 1 GM VIAL IM NR (09:30)
[2020-11-15] MEDS ORDERED: LIDOCAINE HCL 1% LOCAL INJ 20 ML VIAL ONE (09:45)
[2020-11-15] MEDS ORDERED: KETOROLAC TROME10 MG PO (10:44)
[2020-11-15] MEDS ORDERED: CEFDINIR300 MG PO (10:44)
[2020-11-15 11:03] VITALS: BP 152/97
== END 2020-11-15 11:02 | disposition home or self-care (01) ==
LOC: FSED 09:25
DX: N39.0 Urinary tract infection, site not specified (principal); R30.0 Dysuria; R10.30 Lower abdominal pain, unspecified; K74.60 Unspecified cirrhosis of liver; K80.20 Calculus of gallbladder without cholecystitis without obstruction; K57.90 Diverticulosis of intestine, part unspecified, without perforation or abscess without bleeding; R16.1 Splenomegaly, not elsewhere classified; I10 Essential (primary) hypertension; F41.9 Anxiety disorder, unspecified
CPT/HCPCS: 74176; 81003; 87086; 96372; 99283; J0696; J2001

== ENCOUNTER 2020-12-06 16:46 | Emergency (ER) | payer MEDICARE, OTHER ==
[~2020-12-06] VITALS: Ht 157.5 cm; Wt 90.7 kg
[~2020-12-06 16:46] MED LIST changes: +CEFDINIR300 MG PO; +KETOROLAC TROME10 MG PO
[2020-12-06] MEDS ORDERED: CEFTRIAXONE SOD 1 GM VIAL IM ONE (17:15)
[2020-12-06] MEDS ORDERED: KETOROLAC TROMETHAMINE 30 MG/ML VIAL IM ONE (17:15)
[2020-12-06] MEDS ORDERED: IBUPROFEN IB200 MG PO (17:16)
[2020-12-06] MEDS ORDERED: CLONIDINE HCL 0.1 MG TAB ONE (17:49)
[2020-12-06] MEDS ORDERED: CLONIDINE HCL 0.1 MG TAB PO ONE (18:45)
[2020-12-06 18:46] VITALS: BP 152/79
== END 2020-12-06 18:51 | disposition home or self-care (01) ==
LOC: FSED 17:00
DX: M54.5 Low back pain (principal); M47.816 Spondylosis without myelopathy or radiculopathy, lumbar region; I16.0 Hypertensive urgency; F41.9 Anxiety disorder, unspecified; K74.60 Unspecified cirrhosis of liver
CPT/HCPCS: 99282; J1885